=== PATIENT | male | born 1950 | race Caucasian/White ===

== ENCOUNTER → 2016-06-05 | Outpatient (CLI) | payer MEDICARE, BC ==
[2016-06-05 10:58] LABS: INR 1.8 (<1.1); Partial Thromboplastin Time 30.6 sec (22.0-30.0); Prothrombin Time 17.1 sec (9.0-12.0)
[2016-06-05 11:16] LABS: Potassium 4.5 mmol/L (3.5-5.1)
== END | disposition home or self-care (01) ==
LOC: LABWHC1 10:25
PROVIDERS: ATTEND Orthopaedic Surgery
DX: Z01.812 Encounter for preprocedural laboratory examination (principal); Z79.01 Long term (current) use of anticoagulants; Z79.899 Other long term (current) drug therapy
CPT/HCPCS: 36415; 80051; 85610; 85730

== ENCOUNTER 2016-06-07 09:54 | Day surgery (SDC) | payer MEDICARE, BC ==
[2016-06-06 09:06] VITALS: BMI 24.1
[~2016-06-07 09:54] MED LIST: Pre Op ABX Message 1 EACH MISC MISCELLANE ONE
[2016-06-07] MEDS ORDERED: LIDOCAINE 1% 20 ML VIAL (10MG/ML) FOR IV START INTRADERMA ONE (10:31)
[2016-06-07] MEDS ORDERED: LACTATED RINGERS 1,000 ML IV ONE (10:31)
[2016-06-07] MEDS ORDERED: DEXAMETHASONE SOD PHOS (MDV) 100 MG/10 ML VIAL IV ONE (10:34)
[2016-06-07] MEDS ORDERED: ONDANSETRON 4 MG/2 ML VIAL IVP ONE (10:36)
[2016-06-07 10:47] LABS: INR 1.4 (<1.1); Prothrombin Time 13.3 sec (9.0-12.0)
[2016-06-07] MEDS ORDERED: LIDOCAINE 1% INJ 10MG/ML (20 ML MDV) ONE (11:15)
[2016-06-07] MEDS ORDERED: fentaNYL (PF) 50 MCG/ML 2 ML AMP ONE (11:15)
[2016-06-07] MEDS ORDERED: MIDAZOLAM 2 MG/2 ML VIAL ONE (11:15)
[2016-06-07] MEDS ORDERED: ETOMIDATE 2 MG/ML 10 ML VIAL ONE (11:15)
[2016-06-07] MEDS ORDERED: TEMAZEPAM 15 MG CAP PO PRN (11:19)
[2016-06-07] MEDS ORDERED: hydrOXYzine PAMOATE 25 MG CAP PO PRN (11:19)
[2016-06-07] MEDS ORDERED: SENNOSIDES-DOCUSATE SODIUM 1 EACH TAB PO PRN (11:19)
[2016-06-07] MEDS ORDERED: ONDANSETRON 4 MG/2 ML VIAL IVP PRN (11:19)
[2016-06-07] MEDS ORDERED: HYDROcodone/APAP 5-325MG 1 EACH TAB PO PRN ×2 (11:19)
[2016-06-07] MEDS ORDERED: HYDROmorphone 1 MG/ML 1 ML SYRINGE IVP PRN ×3 (11:19)
[2016-06-07] MEDS ORDERED: BUPIVACAINE (PF) 0.5% 30 ML VIAL SQ ONE ×2 (11:37→12:06)
[2016-06-07] MEDS ORDERED: diphenhydrAMINE 50 MG/ML 1 ML VIAL IVP ONE (12:30)
[2016-06-07] MEDS: HYDROmorphone 1 MG/ML 1 ML SYRINGE IVP ONE ×2 (13:15→13:20)
[2016-06-07] MEDS ORDERED: KETOROLAC 30 MG/ML 1 ML VIAL IVP ONE (13:16)
[2016-06-07] MEDS ORDERED: HYDROcodone/APAP 10-325MG 1 EACH TAB ONE (13:38)
[2016-06-07] MEDS ORDERED: HYDROcodone/APAP 10-325MG 1 EACH TAB PO ONE (13:42)
[2016-06-07 15:54] VITALS: RESP 16
[2016-06-07] MEDS: LACTATED RINGERS 1,000 ML IV SCH ×2 (18:09→23:37)
[2016-06-07] MEDS: ceFAZolin 2 GM in SODIUM CHLORIDE 0.9% 100 ML IVPB SCH ×2 (18:15→23:37)
[2016-06-07] MEDS ORDERED: WARFARIN 5 MG TAB PO SCH (19:00)
[2016-06-07] MEDS: FUROSEMIDE 40 MG TAB PO SCH (20:49)
[2016-06-07] MEDS: METOPROLOL TARTRATE 25 MG TAB PO SCH (20:49)
[2016-06-08] MEDS ORDERED: LEVOTHYROXINE 25 MCG TAB PO SCH (06:30)
[2016-06-08] MEDS ORDERED: SPIRONOLACTONE 25 MG TAB PO SCH (09:00)
[2016-06-08] MEDS: FUROSEMIDE 40 MG TAB PO SCH (09:05)
[2016-06-08] MEDS: METOPROLOL TARTRATE 25 MG TAB PO SCH (09:05)
[2016-06-08 09:21] VITALS: BP 112/68; PULSE 62; TEMP 97.5
--- NOTE | 2016-06-08 10:49 | P.DS ---
Providers Expected date of discharge: 06/08/16 Attending physician: Mil Sloan Consults: 06/07/16 11:23 Consult Physician Routine Consulting Provider: Seth Zuniga Consult Reason/Comments: medical management Do you want consulting provider notified?: Yes Consult Physician Routine Consulting Provider: Franco Henriquez Consult Reason/Comments: known patient, cardiac history Do you want consulting provider notified?: Yes Primary care physician: Alexander Marrero - Discharge Diagnosis(es) (1) Status post arthroscopy of right knee Current Visit: Yes Status: Acute Hospital Course: This is a 65-year-old male with history of right knee pain with torn meniscus. It was recommended patient undergo arthroscopic debridement and partial meniscectomy. With his extensive cardiac history was recommended he be admitted postoperatively for evaluation with cardiology. Postoperative day #1, the patient is doing well. He has no new complaints or concerns today. We're waiting cardiac evaluation and clearance for discharge. I am planning discharge to home today after seen by cardiology. Plan - Discharge Summary New Discharge Prescriptions: HYDROcodone/APAP 5-325MG [[place] 5] 1 - 2 each PO Q4-6H PRN #60 tab PRN Reason: Pain Sennosides-Docusate Sodium [Senokot-S] 2 tab PO DAILY #30 tablet Discharge Medication List Levothyroxine Sodium [Synthroid] 25 mcg PO DAILY 11/10/13 [History] Metoprolol Tartrate [Lopressor] 25 mg PO BID #60 tab 07/07/15 [Rx] Furosemide [Lasix] 40 mg PO BID 06/06/16 [History] Spironolactone [Aldactone] 25 mg PO DAILY 06/06/16 [History] Warfarin [Coumadin] 2.5 mg PO SUTUTH 06/06/16 [History] Warfarin [Coumadin] 5 mg PO MOWEFRSA 06/06/16 [History] HYDROcodone/APAP 5-325MG [[place] 5] 1 - 2 each PO Q4-6H PRN #60 tab 06/07/16 [Rx] Sennosides-Docusate Sodium [Senokot-S] 2 tab PO DAILY #30 tablet 06/07/16 [Rx] Follow up Appointment(s)/Referral(s): Mil Sloan DO [Doctor of Osteopathic Medicine] - 10 Days Activity/Diet/Wound Care/Special Instructions: Change dressing daily and as needed after 48h Partial weightbearing as tolerated Follow up with Dr. Sloan in 10 days Call [facility] with any questions or concerns, . Discharge Disposition: HOME SELF-CARE
[2016-06-09] MEDS ORDERED: WARFARIN 2.5 MG TAB PO SCH (18:00)
--- NOTE | 2016-06-11 07:57 | OP ---
DATE OF SERVICE: 06/07/2016 SURGEON: NENA SMITH DO VOLTMETER OPERATOR: PREOPERATIVE DIAGNOSES: 1. Displaced Bucket Handle tear of the right medial meniscus. 2. Chronic gouty osteoarthritis. POSTOPERATIVE DIAGNOSES: 1. Displaced Bucket Handle tear of the right medial meniscus. 2. Chronic gouty osteoarthritis. 3. Proximal tearing of the Peripheral meniscus. OPERATION: Right knee arthroscopy ANESTHESIA: ESTIMATED BLOOD LOSS: SPECIMENS REMOVED: COMPLICATIONS: OPERATIVE FINDINGS: DESCRIPTION OF PROCEDURE: The patient was taken to the Operative Suite and placed in the supine position. General inhalation anesthesia was performed by the Department of Anesthesiology. Placed in leg miller. Betadine prep was carried out mid thigh to mid calf. Sterile drapes applied in the usual manner. An irrigation of superior lateral was performed. Displaced bucket handle tearing also noted. The anteromedial section of the attachment of the medial meniscus was released and held with basket forceps in position. The shaver was utilized for further debridement. Probe carried out and no evidence of displaced meniscus. The lateral compartment was inspected. Lateral meniscus was degenerative. No evidence of displacement of meniscus. Meniscus was probed and displaced. The joint was then copiously irrigated and the instrumentation then removed. The portal wounds were approximated with 3-0 Vicryl suture. Sterile dressings were applied. Patient had full extension and flexion. No evidence of locking at this time. [facility] HOSPITALAdrian
== END 2016-06-08 13:48 | disposition home or self-care (01) ==
LOC: OR 09:54 → 3SUR 12:17 → OR 06-08 13:48
PROVIDERS: ATTEND Orthopaedic Surgery
DX: S83.211A Bucket-handle tear of medial meniscus, current injury, right knee, initial encounter (principal); X58.XXXA Exposure to other specified factors, initial encounter; M10.9 Gout, unspecified; M19.90 Unspecified osteoarthritis, unspecified site; I11.0 Hypertensive heart disease with heart failure; E03.9 Hypothyroidism, unspecified; I25.10 Atherosclerotic heart disease of native coronary artery without angina pectoris; I50.9 Heart failure, unspecified; I48.0 Paroxysmal atrial fibrillation; Z79.01 Long term (current) use of anticoagulants; Z79.899 Other long term (current) drug therapy
CPT/HCPCS: 85610; 29881; J2250; J1200; J0690; J2405; J2001; J3010; J1885; J1170; J1100

== ENCOUNTER → 2016-08-08 | Outpatient (CLI) | payer MEDICARE, BC ==
[2016-08-08 10:27] LABS: Anisocytosis Slight; Aty Lym Flag Slight; CH 28.1; CHCM 31.6; HCT 30.7 % (39.0-53.0); HDW 2.29; HGB 10.1 gm/dL (13.0-17.5); MCH 29.3 pg (25.0-35.0); MCHC 32.8 g/dL (31.0-37.0); MCV 89.4 fL (80.0-100.0); Mean Platelet Volume 8.8; RBC 3.44 m/uL (4.30-5.90); RDW 18.1 % (11.5-15.5); WBC 4.6 k/uL (3.8-10.6); WBC (Perox) 4.96
[2016-08-08 10:30] LABS: Appearance,Urine Clear (Clear); Bilirubin,Urine Negative (Negative); Glucose,Urine (UA) Negative (Negative); Ketones,Urine Negative (Negative); Leukocyte Esterase,Urine Negative (Negative); Nitrite,Urine Negative (Negative); PH, Urine 5.5 (5.0-8.0); Protein,Urine Negative (Negative); Specific Gravity,Urine 1.012 (1.001-1.035); UA Billing (MACRO vs. MICRO) CHEM; Urobilinogen,Urine <2.0 mg/dL (<2.0)
[2016-08-08 11:54] LABS: Calcium 9.6 mg/dL (8.4-10.2); Magnesium 2.2 mg/dL (1.6-2.3); Phosphorous 4.2 mg/dL (2.5-4.5); Potassium 4.5 mmol/L (3.5-5.1); Uric Acid 5.2 mg/dL (3.5-8.5)
[2016-08-08 11:55] LABS: % Iron Saturation 15.2 % (20-50)
[2016-08-08 12:02] LABS: Add Differential Manual Differential
[2016-08-08 12:04] LABS: Manual Review Performed; Nucleated Red Blood Cells 0 /100 WBC (0-0); Total Cells Counted 100
== END | disposition home or self-care (01) ==
LOC: LABWHC1 09:03
PROVIDERS: ATTEND Internal Medicine Nephrology
DX: N18.4 Chronic kidney disease, stage 4 (severe) (principal); D64.9 Anemia, unspecified; E55.9 Vitamin D deficiency, unspecified; E21.3 Hyperparathyroidism, unspecified; M10.9 Gout, unspecified; N39.0 Urinary tract infection, site not specified
CPT/HCPCS: 36415; 80048; 81003; 82040; 82306; 82728; 83540; 83550; 83735; 83970; 84100; 84550; 85025

== ENCOUNTER 2017-03-17 09:49 | Inpatient (IN) | payer MEDICARE, BC ==
--- NOTE | 2017-03-17 11:29 | ED ---
General Adult HPI - General Chief complaint: Urogenital Stated complaint: MALE Time Seen by Provider: 03/17/17 10:18 Source: patient, RN notes reviewed, old records reviewed Mode of arrival: wheelchair Limitations: no limitations - History of Present Illness Initial comments: This is a 66-year-old male the ER for evaluation. Patient is unable to urinate. Patient has no medical history of inability urinate. Patient states on top of inability urinate he is significantly swollen scrotum, significantly swollen belly. Significant waking and lower extremity edema. Patient denies chest pain or shortness of breath - Related Data Home Medications Medication Instructions Recorded Confirmed Levothyroxine Sodium [Synthroid] 25 mcg PO DAILY 11/10/13 03/17/17 Furosemide [Lasix] 40 mg PO BID 06/06/16 03/17/17 Spironolactone [Aldactone] 25 mg PO DAILY 06/06/16 03/17/17 Warfarin [Coumadin] 2.5 mg PO SUTUTH 06/06/16 03/17/17 Warfarin [Coumadin] 5 mg PO MOWEFRSA 06/06/16 03/17/17 Previous Rx's Medication Instructions Recorded Metoprolol Tartrate [Lopressor] 25 mg PO BID #60 tab 07/07/15 Allergies Allergy/AdvReac Type Severity Reaction Status Date / Time No Known Allergies Allergy Verified 03/17/17 10:28 Review of Systems ROS Statement: Those systems with pertinent positive or pertinent negative responses have been documented in the HPI. ROS Other: All systems not noted in ROS Statement are negative. Past Medical History Past Medical History: Atrial Fibrillation, Deep Vein Thrombosis (DVT), Renal Disease, Thyroid Disorder Additional Past Medical History / Comment(s): kidney problem after surgery, cardiomyopathy History of Any Multi-Drug Resistant Organisms: None Reported Past Surgical History: AICD, Cardiac Ablation, Cholecystectomy, Pacemaker Additional Past Surgical History / Comment(s): pacemaker/defibrillator([employer]) Past Anesthesia/Blood Transfusion Reactions: No Reported Reaction Additional Past Anesthesia/Blood Transfusion Reaction / Comment(s): UNKNOWN FAMILY HX Type of Cardiac Device: Biventricular Pacemaker, AICD Device Placement Date:: 2013 Past Psychological History: No Psychological Hx Reported Smoking Status: Never smoker Past Alcohol Use History: Rare Past Drug Use History: None Reported - Past Family History Sister(s) Family Medical History: Cancer Additional Family Medical History / Comment(s): breast ca Father Family Medical History: Myocardial Infarction ([place]) Mother Family Medical History: Myocardial Infarction ([place]) General Exam Limitations: no limitations General appearance: alert, in no apparent distress Head exam: Present: atraumatic, normocephalic, normal inspection Eye exam: Present: normal appearance, PERRL, EOMI. Absent: scleral icterus, conjunctival injection, periorbital swelling ENT exam: Present: normal exam, mucous membranes moist Neck exam: Present: normal inspection. Absent: tenderness, meningismus, lymphadenopathy Respiratory exam: Present: normal lung sounds bilaterally. Absent: respiratory distress, wheezes, rales, rhonchi, stridor Cardiovascular Exam: Present: regular rate, normal rhythm, normal heart sounds. Absent: systolic murmur, diastolic murmur, rubs, gallop, clicks GI/Abdominal exam: Present: soft, normal bowel sounds. Absent: distended, tenderness, guarding, rebound, rigid Extremities exam: Present: normal inspection, full ROM, normal capillary refill. Absent: tenderness, pedal edema, joint swelling, calf tenderness Back exam: Present: normal inspection Neurological exam: Present: alert, oriented X3, CN II-XII intact Psychiatric exam: Present: normal affect, normal mood Skin exam: Present: warm, dry, intact, normal color. Absent: rash Course Vital Signs 03/17/17 03/17/17 03/17/17 09:53 11:00 12:21 Temperature 96.8 F L Pulse Rate 67 63 56 L Respiratory 18 18 18 Rate Blood Pressure 88/50 106/58 117/59 O2 Sat by Pulse 97 97 98 Oximetry 03/17/17 14:46 Temperature Pulse Rate 65 Respiratory 18 Rate Blood Pressure 111/58 O2 Sat by Pulse 97 Oximetry - Reevaluation(s) Reevaluation #1: Spoke with patient and family regarding exam findings, patient has no significant improvement in symptoms Medical Decision Making - Medical Decision Making 66 male the ER for evaluation. Patient was in today for evaluation regarding significant edema, scrotal edema leg edema. Patient be admitted for further evaluation and management - Lab Data Result diagrams: 03/19/17 06:25 03/19/17 06:25 Lab Results 03/17/17 03/17/17 03/17/17 Range/Units 11:07 11:07 11:07 WBC (3.8-10.6) k/uL RBC (4.30-5.90) m/uL Hgb (13.0-17.5) gm/dL Hct (39.0-53.0) % MCV (80.0-100.0) fL MCH (25.0-35.0) pg MCHC (31.0-37.0) g/dL RDW (11.5-15.5) % Plt Count (150-450) k/uL Neutrophils % (Manual) % Band Neutrophils % % Lymphocytes % (Manual) % Monocytes % (Manual) % Eosinophils % (Manual) % Neutrophils # (Manual) (1.3-7.7) k/uL Lymphocytes # (Manual) (1.0-4.8) k/uL Monocytes # (Manual) (0-1.0) k/uL Eosinophils # (Manual) (0-0.7) k/uL Nucleated RBCs (0-0) /100 WBC Hypochromasia Poikilocytosis (manual Anisocytosis Target Cells PT (9.0-12.0) sec INR (<1.2) APTT (22.0-30.0) sec Sodium 136 L (137-145) mmol/L Potassium 5.0 (3.5-5.1) mmol/L Chloride 102 (98-107) mmol/L Carbon Dioxide 23 (22-30) mmol/L Anion Gap 11 mmol/L BUN 63 H (9-20) mg/dL Creatinine 2.20 H (0.66-1.25) mg/dL Est GFR (MDRD) Af Amer 36 (>60 ml/min/1.73 sqM) Est GFR (MDRD) Non-Af 30 (>60 ml/min/1.73 sqM) Glucose 101 H (74-99) mg/dL Plasma Lactic Acid Moustapha 1.0 (0.7-2.0) mmol/L Calcium 9.7 (8.4-10.2) mg/dL Phosphorus 4.7 H (2.5-4.5) mg/dL Magnesium 2.5 H (1.6-2.3) mg/dL Iron (65-175) ug/dL TIBC (228-460) ug/dL Iron Saturation (15.00-50.00) Ferritin (22.0-322.0) ng/mL Total Bilirubin 2.0 H (0.2-1.3) mg/dL AST 29 (17-59) U/L ALT 25 (21-72) U/L Alkaline Phosphatase 181 H (38-126) U/L Ammonia 73 H (<30) umol/L Total Creatine Kinase 122 (55-170) U/L CK-MB (CK-2) 2.6 H* (0.0-2.4) ng/mL CK-MB (CK-2) Rel Index 2.1 Troponin I 0.014 (0.000-0.034) ng/mL Total Protein 6.4 (6.3-8.2) g/dL Albumin 3.6 (3.5-5.0) g/dL Lipase 213 (23-300) U/L Urine Color Urine Appearance (Clear) Urine pH (5.0-8.0) Ur Specific [place] (1.001-1.035) Urine Protein (Negative) Urine Glucose (UA) (Negative) Urine Ketones (Negative) Urine Blood (Negative) Urine Nitrite (Negative) Urine Bilirubin (Negative) Urine Urobilinogen (<2.0) mg/dL Ur Leukocyte Esterase (Negative) Serum Alcohol <10 mg/dL 03/17/17 03/17/17 03/17/17 Range/Units 11:07 11:07 11:07 WBC 4.3 (3.8-10.6) k/uL RBC 3.43 L (4.30-5.90) m/uL Hgb 9.4 L (13.0-17.5) gm/dL Hct 31.1 L (39.0-53.0) % MCV 90.7 (80.0-100.0) fL MCH 27.5 (25.0-35.0) pg MCHC 30.3 L (31.0-37.0) g/dL RDW 19.8 H (11.5-15.5) % Plt Count 120 L (150-450) k/uL Neutrophils % (Manual) 80 % Band Neutrophils % 1 % Lymphocytes % (Manual) 12 % Monocytes % (Manual) 5 % Eosinophils % (Manual) 2 % Neutrophils # (Manual) 3.40 (1.3-7.7) k/uL Lymphocytes # (Manual) 0.52 L (1.0-4.8) k/uL Monocytes # (Manual) 0.22 (0-1.0) k/uL Eosinophils # (Manual) 0.09 (0-0.7) k/uL Nucleated RBCs 0 (0-0) /100 WBC Hypochromasia Slight Poikilocytosis (manual Present Anisocytosis Slight Target Cells Present PT 41.0 H (9.0-12.0) sec INR 4.6 H (<1.2) APTT 35.4 H (22.0-30.0) sec Sodium (137-145) mmol/L Potassium (3.5-5.1) mmol/L Chloride (98-107) mmol/L Carbon Dioxide (22-30) mmol/L Anion Gap mmol/L BUN (9-20) mg/dL Creatinine (0.66-1.25) mg/dL Est GFR (MDRD) Af Amer (>60 ml/min/1.73 sqM) Est GFR (MDRD) Non-Af (>60 ml/min/1.73 sqM) Glucose (74-99) mg/dL Plasma Lactic Acid Moustapha (0.7-2.0) mmol/L Calcium (8.4-10.2) mg/dL Phosphorus (2.5-4.5) mg/dL Magnesium (1.6-2.3) mg/dL Iron (65-175) ug/dL TIBC (228-460) ug/dL Iron Saturation (15.00-50.00) Ferritin (22.0-322.0) ng/mL Total Bilirubin (0.2-1.3) mg/dL AST (17-59) U/L ALT (21-72) U/L Alkaline Phosphatase (38-126) U/L Ammonia (<30) umol/L Total Creatine Kinase (55-170) U/L CK-MB (CK-2) (0.0-2.4) ng/mL CK-MB (CK-2) Rel Index Troponin I (0.000-0.034) ng/mL Total Protein (6.3-8.2) g/dL Albumin (3.5-5.0) g/dL Lipase (23-300) U/L Urine Color Yellow Urine Appearance Clear (Clear) Urine pH 5.5 (5.0-8.0) Ur Specific [place] 1.009 (1.001-1.035) Urine Protein Negative (Negative) Urine Glucose (UA) Negative (Negative) Urine Ketones Negative (Negative) Urine Blood Negative (Negative) Urine Nitrite Negative (Negative) Urine Bilirubin Negative (Negative) Urine Urobilinogen <2.0 (<2.0) mg/dL Ur Leukocyte Esterase Negative (Negative) Serum Alcohol mg/dL 03/17/17 Range/Units 11:07 WBC (3.8-10.6) k/uL RBC (4.30-5.90) m/uL Hgb (13.0-17.5) gm/dL Hct (39.0-53.0) % MCV (80.0-100.0) fL MCH (25.0-35.0) pg MCHC (31.0-37.0) g/dL RDW (11.5-15.5) % Plt Count (150-450) k/uL Neutrophils % (Manual) % Band Neutrophils % % Lymphocytes % (Manual) % Monocytes % (Manual) % Eosinophils % (Manual) % Neutrophils # (Manual) (1.3-7.7) k/uL Lymphocytes # (Manual) (1.0-4.8) k/uL Monocytes # (Manual) (0-1.0) k/uL Eosinophils # (Manual) (0-0.7) k/uL Nucleated RBCs (0-0) /100 WBC Hypochromasia Poikilocytosis (manual Anisocytosis Target Cells PT (9.0-12.0) sec INR (<1.2) APTT (22.0-30.0) sec Sodium (137-145) mmol/L Potassium (3.5-5.1) mmol/L Chloride (98-107) mmol/L Carbon Dioxide (22-30) mmol/L Anion Gap mmol/L BUN (9-20) mg/dL Creatinine (0.66-1.25) mg/dL Est GFR (MDRD) Af Amer (>60 ml/min/1.73 sqM) Est GFR (MDRD) Non-Af (>60 ml/min/1.73 sqM) Glucose (74-99) mg/dL Plasma Lactic Acid Moustapha (0.7-2.0) mmol/L Calcium (8.4-10.2) mg/dL Phosphorus (2.5-4.5) mg/dL Magnesium (1.6-2.3) mg/dL Iron 39 L (65-175) ug/dL TIBC 354 (228-460) ug/dL Iron Saturation 11.02 L (15.00-50.00) Ferritin 54.1 (22.0-322.0) ng/mL Total Bilirubin (0.2-1.3) mg/dL AST (17-59) U/L ALT (21-72) U/L Alkaline Phosphatase (38-126) U/L Ammonia (<30) umol/L Total Creatine Kinase (55-170) U/L CK-MB (CK-2) (0.0-2.4) ng/mL CK-MB (CK-2) Rel Index Troponin I (0.000-0.034) ng/mL Total Protein (6.3-8.2) g/dL Albumin (3.5-5.0) g/dL Lipase (23-300) U/L Urine Color Urine Appearance (Clear) Urine pH (5.0-8.0) Ur Specific [place] (1.001-1.035) Urine Protein (Negative) Urine Glucose (UA) (Negative) Urine Ketones (Negative) Urine Blood (Negative) Urine Nitrite (Negative) Urine Bilirubin (Negative) Urine Urobilinogen (<2.0) mg/dL Ur Leukocyte Esterase (Negative) Serum Alcohol mg/dL - Radiology Data Radiology results: report reviewed (Chest x-ray and ultrasound abdomen including gallbladder bilateral renals and plantar is negative for acute disease ), image reviewed Disposition Clinical Impression: Renal failure, CHF (congestive heart failure), Anasarca, Bilateral leg edema, Ascites Disposition: ADMITTED IP TO THIS [facility] Condition: Good
[2017-03-17 11:37] LABS: Appearance,Urine Clear (Clear); Bilirubin,Urine Negative (Negative); Blood,Urine Negative (Negative); Color,Urine Yellow; Glucose,Urine (UA) Negative (Negative); Ketones,Urine Negative (Negative); Leukocyte Esterase,Urine Negative (Negative); Nitrite,Urine Negative (Negative); PH, Urine 5.5 (5.0-8.0); Protein,Urine Negative (Negative); Specific Gravity,Urine 1.009 (1.001-1.035); Urobilinogen,Urine <2.0 mg/dL (<2.0)
[2017-03-17 11:44] LABS: INR 4.6 (<1.2); Partial Thromboplastin Time 35.4 sec (22.0-30.0)
[2017-03-17 11:47] LABS: ALT 25 U/L (21-72); AST 29 U/L (17-59); Albumin 3.6 g/dL (3.5-5.0); Alcohol <10 mg/dL; Alkaline Phosphatase 181 U/L (38-126); Anion Gap 11 mmol/L; Blood Urea Nitrogen 63 mg/dL (9-20); Calcium 9.7 mg/dL (8.4-10.2); Carbon Dioxide 23 mmol/L (22-30); Chloride 102 mmol/L (98-107); Glucose 101 mg/dL (74-99); Lipase 213 U/L (23-300); Magnesium 2.5 mg/dL (1.6-2.3); Phosphorus 4.7 mg/dL (2.5-4.5); Sodium 136 mmol/L (137-145); Total Protein 6.4 g/dL (6.3-8.2)
[2017-03-17 12:08] LABS: Anisocytosis Slight; HCT 31.1 % (39.0-53.0); HGB 9.4 gm/dL (13.0-17.5); Hypochromasia Slight; MCH 27.5 pg (25.0-35.0); MCHC 30.3 g/dL (31.0-37.0); MCV 90.7 fL (80.0-100.0); Mean Platelet Volume 11.1; Platelet Count 120 k/uL (150-450); RBC 3.43 m/uL (4.30-5.90); RDW 19.8 % (11.5-15.5); WBC 4.3 k/uL (3.8-10.6)
[2017-03-17 12:10] LABS: Troponin I 0.014 ng/mL (0.000-0.034)
[2017-03-17 12:19] LABS: Creatine Kinase MB 2.6 ng/mL (0.0-2.4)
[2017-03-17 12:30] LABS: Band Neutrophils % 1 %; Eosinophils # (M) 0.09 k/uL (0-0.7); Lymphocytes # (M) 0.52 k/uL (1.0-4.8); Monocytes # (M) 0.22 k/uL (0-1.0); Neutrophils % (M) 80 %; Nucleated Red Blood Cells 0 /100 WBC (0-0); Target Cells Present; Total Cells Counted 100
[2017-03-17 12:31] LABS: Poikilocytosis (M) Present
--- NOTE | 2017-03-17 14:06 | US ---
EXAMINATION TYPE: US abd limited kidneys/bladder DATE OF EXAM: 03/17/2017 COMPARISON: US 06/24/2015 CLINICAL HISTORY: Pain. abdominal distention EXAM MEASUREMENTS: Liver Length: 15.8 cm Gallbladder Wall: Surgically absent cm CBD: 0.7 cm Right Kidney: 9.6 x 4.1 x 5.0 cm Left Kidney: 10.1 x 4.1 x 4.9 cm Pancreas: visualized portions wnl Liver: limited vis to intercostal window some mild fatty infiltration also appears to be present. Gallbladder: Surgically absent CBD: measures 0.7 cm Right Kidney: No hydronephrosis or masses seen Left Kidney: No hydronephrosis or masses seen Bladder: wnl Bilateral Jets Seen No patient has pitted edema in abdominal wall limiting visualization. IMPRESSION: 1. Mild fatty infiltration liver. 2. Note is made of some subcutaneous edema present during this exam.
[2017-03-17] MEDS ORDERED: LACTULOSE 20 GM/30 ML CUP PO ONE (14:23)
[2017-03-17] MEDS ORDERED: FUROSEMIDE 10 MG/ML 10 ML VIAL IV STA (14:24)
[2017-03-17] MEDS ORDERED: PNEUMOCOCCAL VACC-PNEUMOVAX 23 25 MCG/0.5 ML VIAL IM ONE (16:43)
[2017-03-17] MEDS ORDERED: PSEUDOEPHEDRINE 30 MG TAB PO PRN (17:04)
[2017-03-17] MEDS: IOHEXOL 350 MG/ML 25 ML BOTTLE (ORAL USE) PO PRN ×2 (17:28→18:31)
[2017-03-17] MEDS: SODIUM CHLORIDE 0.65% NASAL SPRAY 44 ML BTL NASAL PRN (18:31)
--- NOTE | 2017-03-17 19:20 | XR ---
EXAMINATION TYPE: XR chest 2V DATE OF EXAM: 03/17/2017 COMPARISON: 06/29/2015 HISTORY: Chest pain TECHNIQUE: Frontal and lateral views of the chest are obtained. FINDINGS: Heart is enlarged. There is mild pulmonary vascular congestion. There is a left axillary p acemaker with the lead tip in the right ventricle. There are chest leads. I see no definite pleural e ffusion. IMPRESSION: Cardiomegaly with mild congestion that is increased slightly compared to last exam.
--- NOTE | 2017-03-17 19:27 | CT ---
EXAMINATION TYPE: CT abdomen pelvis wo con DATE OF EXAM: 03/17/2017 COMPARISON: NONE HISTORY: Patient complains of scrotal swelling CT DLP: 1299.5 mGycm Automated exposure control for dose reduction was used. TECHNIQUE: Helical acquisition of images was performed from the lung bases through the pelvis. FINDINGS: There is a small right pleural effusion. Heart is enlarged. There is a 1 cm cyst in the anterior live r. Bile ducts are not dilated. There are clips from cholecystectomy. Spleen appears normal. There is no pancreatic mass. There is mild ascites. There is extensive subcutaneous edema around the abdomen. Bladder distends smoothly. There are bilateral scrotal hydroceles noted. I see no intestinal wall thickening. There is no evidence of bowel obstruction. There is no hydronephrosis. Kidneys have normal contour. There is no evidence of a renal mass. There is no retroperitoneal adenopathy. There is no sign of appendicitis. IMPRESSION: CARDIOMEGALY WITH SMALL RIGHT PLEURAL EFFUSION. THIS COULD RELATE TO CONGESTIVE HEART FAILURE. MILD ASCITES. SCROTAL HYDROCELES. SUBCUTANEOUS EDEMA. NO FREE AIR. THERE IS 20% COMPRESSION DEFORMITY OF T12 VERTEBRA THAT IS PROBABLY OLD.
[2017-03-17] MEDS: METOPROLOL TARTRATE 25 MG TAB PO SCH (20:29)
[2017-03-17] MEDS: FUROSEMIDE 10 MG/ML 10 ML VIAL IV SCH (20:29)
[2017-03-18 01:03] LABS: Iron Saturation 11.02 (15.00-50.00)
[2017-03-18] MEDS: SODIUM CHLORIDE 0.65% NASAL SPRAY 44 ML BTL NASAL PRN (03:28)
[2017-03-18] MEDS: LEVOTHYROXINE 25 MCG TAB PO SCH (06:12)
[2017-03-18 06:58] LABS: Calcium 10.1 mg/dL (8.4-10.2)
[2017-03-18 07:15] LABS: Anisocytosis Slight; HGB 9.3 gm/dL (13.0-17.5); Hypochromasia Moderate; MCH 28.5 pg (25.0-35.0); MCHC 30.1 g/dL (31.0-37.0); MCV 94.6 fL (80.0-100.0); Macrocytosis Slight; Mean Platelet Volume 9.2; Platelet Count 126 k/uL (150-450); RBC 3.28 m/uL (4.30-5.90); RDW 18.2 % (11.5-15.5); WBC 4.2 k/uL (3.8-10.6)
[2017-03-18 07:40] LABS: INR 4.7 (<1.2); Prothrombin Time 42.8 sec (9.0-12.0)
[2017-03-18] MEDS: METOPROLOL TARTRATE 25 MG TAB PO SCH ×2 (08:51→21:27)
[2017-03-18] MEDS: SPIRONOLACTONE 25 MG TAB PO SCH (08:51)
[2017-03-18] MEDS: ENOXAPARIN 40 MG/0.4 ML SYRINGE SQ SCH (08:51)
[2017-03-18 09:11] LABS: Band Neutrophils % 1 %; Eosinophils # (M) 0.21 k/uL (0-0.7); Lymphocytes # (M) 0.38 k/uL (1.0-4.8); Monocytes # (M) 0.21 k/uL (0-1.0); Neutrophils % (M) 80 %; Nucleated Red Blood Cells 0 /100 WBC (0-0); Polychromasia Present; Total Cells Counted 100
[2017-03-18 09:12] LABS: Poikilocytosis (M) Present; Target Cells Present
--- NOTE | 2017-03-18 09:38 | P.NPCON ---
History of Present Illness - Reason for Consult chronic renal failure - History of Present Illness Reason for consultation: Chronic kidney disease History of present illness: Patient is a 66-year-old male seen in renal consultation for chronic kidney disease. 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 His baseline creatinine has been in the range of 1.6- 2.5. Patient presented to hospital with generalized edema as well as some scrotal swelling. Patient states he was taking Lasix 40 mg twice daily but his urine output had been decreasing gradually. He was also started on Flomax and that did not help either he does have history of systolic CHF with ejection fraction of 20-25%. He is currently maintained on Lasix 60 mg IV twice daily and has been urinating quite a bit. No hematuria or dysuria. Denies chest pain or shortness of breath. He states he did gain about 35 pounds in the last 2 months or so. He also states that he was told that he was dehydrated and to drink more water and therefore has been drinking quite a bit of water which she states has contributed to his weight gain. Denies use of NSAIDs. No vomiting or diarrhea. No fever or chills. Vital signs are stable. General: The patient appeared well nourished and normally developed. HEENT: Head exam is unremarkable. Neck is without jugular venous distension. LUNGS: Lungs are clear to auscultation and percussion. Breath sounds decreased. HEART: Rate and Rhythm are regular. First and second heart sounds normal. No murmurs, rubs or gallops. ABDOMEN: Abdominal exam reveals normal bowel sounds. Distention noted. EXTREMITITES: 2+ edema. Erythema noted. Past Medical History Past Medical History: Atrial Fibrillation, Deep Vein Thrombosis (DVT), Renal Disease, Thyroid Disorder Additional Past Medical History / Comment(s): kidney problem after surgery, cardiomyopathy, occ constipation History of Any Multi-Drug Resistant Organisms: None Reported Past Surgical History: AICD, Cardiac Ablation, Cholecystectomy, Pacemaker Additional Past Surgical History / Comment(s): pacemaker/defibrillator([employer]) , rt kne arthroscopic debridment/partial meniscectomy Past Anesthesia/Blood Transfusion Reactions: No Reported Reaction Additional Past Anesthesia/Blood Transfusion Reaction / Comment(s): UNKNOWN FAMILY HX Type of Cardiac Device: Biventricular Pacemaker, AICD Device Placement Date:: 2013 Smoking Status: Never smoker - Past Family History Sister(s) Family Medical History: Cancer Additional Family Medical History / Comment(s): breast ca Father Family Medical History: Myocardial Infarction ([place]) Mother Family Medical History: Myocardial Infarction ([place]) Medications and Allergies Home Medications Medication Instructions Recorded Confirmed Type Levothyroxine Sodium [Synthroid] 25 mcg PO DAILY 11/10/13 03/17/17 History Metoprolol Tartrate [Lopressor] 25 mg PO BID #60 tab 07/07/15 03/17/17 Rx Furosemide [Lasix] 40 mg PO BID 06/06/16 03/17/17 History Spironolactone [Aldactone] 25 mg PO DAILY 06/06/16 03/17/17 History Warfarin [Coumadin] 2.5 mg PO SUTUTH 06/06/16 03/17/17 History Warfarin [Coumadin] 5 mg PO MOWEFRSA 06/06/16 03/17/17 History Allergies Allergy/AdvReac Type Severity Reaction Status Date / Time No Known Allergies Allergy Verified 03/17/17 10:28 Physical Exam Vitals: Vital Signs Temp Pulse Pulse Resp BP BP Pulse Ox 03/18/17 08:52 97.6 F 57 L 16 108/59 99 03/18/17 04:00 96.8 F L 75 17 111/54 97 03/18/17 00:00 96.9 F L 65 18 115/77 95 03/17/17 20:00 97 F L 68 17 106/53 97 03/17/17 16:52 97.3 F L 62 18 108/58 99 03/17/17 14:46 65 18 111/58 97 03/17/17 12:21 56 L 18 117/59 98 03/17/17 11:00 63 18 106/58 97 03/17/17 09:53 96.8 F L 67 18 88/50 97 Intake and Output 03/17/17 03/18/17 03/18/17 22:59 06:59 14:59 Intake Total 200 118 Output Total 350 475 Balance -350 -275 118 Intake: Oral 200 118 Output: Urine 350 475 Other: Voiding Method Toilet Toilet Toilet Urinal Urinal # Voids 200 Weight 108.9 kg Results - Lab Results Most recent lab results Calcium 10.1 mg/dL (8.4-10.2) 01/30/18 06:08 Phosphorus 4.7 mg/dL (2.5-4.5) H 03/17/17 11:07 Magnesium 2.5 mg/dL (1.6-2.3) H 03/17/17 11:07 03/18/17 06:08 03/18/17 06:08 Assessment and Plan Plan: assessment: #1. Chronic kidney disease stage IIIB/4 secondary to nephrosclerosis and cardiorenal syndrome with baseline creatinine in the range of 1.6-2.5. Urinalysis is quite benign. No evidence of hydronephrosis noted. GFR is at baseline. #2. Volume overload. #3. Systolic CHF with ejection fraction of 20-25%. #4. Anemia of chronic kidney disease. Rule out iron deficiency. #5. Metabolic acidosis secondary to chronic kidney disease. Plan: I will increase Lasix to 80 mg IV twice daily. Check iron studies. Avoid nephrotoxic agents and hypotensive episodes. Maintain low salt diet and 1500 mL fluid restriction. Add oral sodium bicarbonate. Repeat electrolytes in the morning. Daily weights. Thank you for the consultation. I will continue to follow the patient with you during his hospital stay.
[2017-03-18] MEDS: FUROSEMIDE 10 MG/ML 10 ML VIAL IV SCH ×3 (11:48→20:39)
[2017-03-18] MEDS: SODIUM BICARBONATE TAB 650 MG TAB PO SCH ×2 (11:51→20:39)
--- NOTE | 2017-03-18 12:58 | P.CONS ---
History of Present Illness - Reason for Consult Consult date: 03/18/17 elevated ammonia Requesting physician: Lisbet Landers - History of Present Illness 66-year-old gentleman with a past medical history of chronic kidney disease stage III be secondary to cardiorenal syndrome, nonischemic cardiomyopathy/AICD , cholecystectomy, TIA, paroxysmal atrial fibrillation maintained on warfarin admitted with generalized edema scrotal swelling and increased weight gain 2 months. Admission ammonia level elevated at 73 without mental status changes. Repeat ammonia level today increased to 102. Patient reports intermittent muscle aches cramps over the last few weeks. Consult requested for elevated ammonia level. Patient states he has no known history of liver disease or hepatitis. No history of EtOH abuse. Denies hematemesis hematochezia melena. White count 4.2-4.3. Hemoglobin 9.3-9.4. MCV 94. Platelet 120-126. INR 4.7. Total bilirubin 2.0. AST 29. ALT 25. Alkaline phosphatase 181. Ferritin 54. Iron saturation 11%. Iron 39. TIBC 354. Total protein 6.4. Albumin 3.6. CT abdomen and pelvis reported cardiomegaly with small right pleural effusion. Mild ascites. Scrotal hydroceles. Subcutaneous edema. Mild ascites. No pancreatic mass. Spleen appears normal. Bile duct is not dilated. 1 cm cyst anterior liver. Heart enlarged. Review of Systems Constitutional: Denies fever, chills, sweats, weight gain, or loss. HEENT: Negative for migraines, blurred vision or loss, earaches, drainage, tinnitus, oral mucosal lesions, dysphagia, or odynophagia. Cardiac: Cardiorenal syndrome. Cardiomyopathy. AICD pacemaker. Atrial fibrillation. DVT. Negative for chest pain, arrhythmias, or palpitation. Respiratory: Negative for shortness of breath, hemoptysis, cough, or sputum production. Gastrointestinal: See HPI for pertinent findings. Genitourinary: Negative for hematuria, urgency, frequency, polyuria, dysuria, or penile discharge. Musculoskeletal: Negative for muscle aches, swelling, arthritis, and arthralgias. Neurologic: Negative for stroke or TIA. Endocrine: History of hypothyroidism.. Nephrology: Chronic kidney disease stage III B. Skin: Negative for rash or itching. Psychiatric: Negative history for depression and anxiety Past Medical History Past Medical History: Atrial Fibrillation, Deep Vein Thrombosis (DVT), Renal Disease, Thyroid Disorder Additional Past Medical History / Comment(s): kidney problem after surgery, cardiomyopathy, occ constipation History of Any Multi-Drug Resistant Organisms: None Reported Past Surgical History: AICD, Cardiac Ablation, Cholecystectomy, Pacemaker Additional Past Surgical History / Comment(s): pacemaker/defibrillator([employer]) , rt kne arthroscopic debridment/partial meniscectomy Past Anesthesia/Blood Transfusion Reactions: No Reported Reaction Additional Past Anesthesia/Blood Transfusion Reaction / Comm: UNKNOWN FAMILY HX Type of Cardiac Device: Biventricular Pacemaker, AICD Device Placement Date:: 2013 Smoking Status: Never smoker - Past Family History Sister(s) Family Medical History: Cancer Additional Family Medical History / Comment(s): breast ca Father Family Medical History: Myocardial Infarction ([place]) Mother Family Medical History: Myocardial Infarction ([place]) Medications and Allergies Home Medications Medication Instructions Recorded Confirmed Type Levothyroxine Sodium [Synthroid] 25 mcg PO DAILY 11/10/13 03/17/17 History Metoprolol Tartrate [Lopressor] 25 mg PO BID #60 tab 07/07/15 03/17/17 Rx Furosemide [Lasix] 40 mg PO BID 06/06/16 03/17/17 History Spironolactone [Aldactone] 25 mg PO DAILY 06/06/16 03/17/17 History Warfarin [Coumadin] 2.5 mg PO SUTUTH 06/06/16 03/17/17 History Warfarin [Coumadin] 5 mg PO MOWEFRSA 06/06/16 03/17/17 History Allergies Allergy/AdvReac Type Severity Reaction Status Date / Time No Known Allergies Allergy Verified 03/17/17 10:28 Physical Exam Vitals: Vital Signs Temp Pulse Pulse Resp BP BP Pulse Ox 03/18/17 12:06 97.6 F 59 L 16 106/63 98 03/18/17 08:52 97.6 F 57 L 16 108/59 99 03/18/17 04:00 96.8 F L 75 17 111/54 97 03/18/17 00:00 96.9 F L 65 18 115/77 95 03/17/17 20:00 97 F L 68 17 106/53 97 03/17/17 16:52 97.3 F L 62 18 108/58 99 03/17/17 14:46 65 18 111/58 97 Intake and Output 03/17/17 03/18/17 03/18/17 22:59 06:59 14:59 Intake Total 200 118 Output Total 350 475 Balance -350 -275 118 Intake: Oral 200 118 Output: Urine 350 475 Other: Voiding Method Toilet Toilet Toilet Urinal Urinal # Voids 200 Weight 108.9 kg General appearance: The patient is alert, oriented, in no acute distress. HET: Head is normocephalic and atraumatic. Pupils are equal and reactive. Oropharynx is clear without lesions. Neck: Supple without lymphadenopathy. Trachea midline. Heart: S1 S2. Regular rate and rhythm. Lungs: No crackles or wheezes are heard. Abdomen: Soft, distended with bowel sounds. No peritoneal signs. No palpable organomegaly or masses. Scrotal edema. Extremities: +2/3 bilateral lower extremity edema.. Neurological: No focal deficits. Strength and sensation are grossly intact. Results CBC & Chem 7: 03/19/17 06:25 03/19/17 06:25 Labs: Abnormal Lab Results - Last 24 Hours (Table) 03/17/17 03/18/17 03/18/17 Range/Units 11:07 06:08 06:08 RBC 3.28 L (4.30-5.90) m/uL Hgb 9.3 L (13.0-17.5) gm/dL Hct 31.0 L (39.0-53.0) % MCHC 30.1 L (31.0-37.0) g/dL RDW 18.2 H (11.5-15.5) % Plt Count 126 L (150-450) k/uL Lymphocytes # (Manual) 0.38 L (1.0-4.8) k/uL PT (9.0-12.0) sec INR (<1.2) Sodium 134 L (137-145) mmol/L Carbon Dioxide 20 L (22-30) mmol/L BUN 67 H (9-20) mg/dL Creatinine 2.30 H (0.66-1.25) mg/dL Iron 39 L (65-175) ug/dL Iron Saturation 11.02 L (15.00-50.00) Ammonia (<30) umol/L 03/18/17 03/18/17 Range/Units 06:08 11:17 RBC (4.30-5.90) m/uL Hgb (13.0-17.5) gm/dL Hct (39.0-53.0) % MCHC (31.0-37.0) g/dL RDW (11.5-15.5) % Plt Count (150-450) k/uL Lymphocytes # (Manual) (1.0-4.8) k/uL PT 42.8 H (9.0-12.0) sec INR 4.7 H (<1.2) Sodium (137-145) mmol/L Carbon Dioxide (22-30) mmol/L BUN (9-20) mg/dL Creatinine (0.66-1.25) mg/dL Iron (65-175) ug/dL Iron Saturation (15.00-50.00) Ammonia 102 H (<30) umol/L Microbiology - Last 24 Hours (Table) 03/17/17 11:07 Urine Culture - Final Urine,Voided CT scan - abdomen: report reviewed (Dr. Luna) Assessment and Plan (1) Hyperammonemia Narrative/Plan: Asymptomatic hyperammonemia. The etiology is unclear. Underlying chronic liver disease possible metabolic acidemia type deficiency cannot be excluded. Current Visit: Yes Status: Acute Code(s): E72.20 - DISORDER OF UREA CYCLE METABOLISM, UNSPECIFIED SNOMED Code(s): 6878921 (2) Cardiorenal syndrome with renal failure Narrative/Plan: Chronic kidney disease stage IIIB Current Visit: Yes Status: Acute Code(s): I13.10 - HYP HRT & CHR KDNY DIS W/ O HRT FAIL, W STG 1-4/UNSP CHR KDNY; N19 - UNSPECIFIED KIDNEY FAILURE SNOMED Code(s): 106276269 (3) Hyperbilirubinemia Narrative/Plan: Suspect passive venous congestion related Current Visit: Yes Status: Acute Code(s): E80.6 - OTHER DISORDERS OF BILIRUBIN METABOLISM SNOMED Code(s): 57967861 Plan: 1. Full serologic workup for chronic liver disease. Hepatitis serology. AFP. Total and free serum measurement of l-carnitine. 2. Lactulose 20 g 3 times daily. Repeat ammonia level in a.m. Will follow closely with you. Further recommendations forthcoming. Thank you for this kind referral and the opportunity to participate in the care of your patient. This consultation was discussed with Dr. Luna. The impression and plan of care have been directed as dictated.
--- NOTE | 2017-03-18 15:13 | P.HPIM ---
History of Present Illness Chief Complaint: alek, common bile duct 0.7 cm, gallbladder This is a 66 year old pleasant gentleman aptient of Dr Antonio Bardales. he has underlying history of aftrial fibrillation, hypertension and ventricular arrythmia for which and cardiac ablation on 10/[address] Henriquez, CVA, diabetes mellitus type 2 atrial fibrillation, DVT,. Presenting to the emergency room secondary to difficulty of urinating, acute onset, he also has swelling scrotum, swelling lower extremity and some swelling in the abdomen. Patient denies any chest pain or shortness of breath, patient's on Lasix 40 mg twice a day, as well as Coumadin for anticoagulation Weight gain started approximately since , when patient was noted to have some leg cramps, a friend advised him to drink more fluids, thereafter patient started drinking more of fluids 64 ounces minimum per day, patient started gaining the weight and had 35 pound weight gain since January. Patient denies any PND or shortness of breath he does have worsening leg swelling and abdominal ascites no chest pain patient denies jaundice He was subsequently seen in the emergency room, urinalysis was negative for pyuria or hematuria, specific gravity was 1.009, creatinine of 2.2, BUN of 63, alkaline phosphatase elevated at 181, ammonia elevated at 73, bilirubin elevated at 2.0 however AST ALT normal, alkaline phosphase elevated abdominal ultrasound shows gallbladder surgically absent, patient has fatty liver, and bile duct 0.7 cm, no hydronephrosis, bladder within normal limits, no bladder jets noted, as patient has pitting edema and abdomen with the examination the patient complains of epistaxis leg cramps and abdominal distention with ascites and difficulties urinating, post void residual was requested, bladder scan noted as above negative for any bladder distention or hydronephrosis. Consult was made Dr. Castro and Dr. Luna gastroenterology Previous workup in 2016 echocardiogram was reviewed, EF at that time was 20-25% , right ventricle enlargement, mild aortic valve sclerosis without stenosis, left ventricle wall thickness is normal, mild MR and mild TR and mild TR Review of Systems Constitutional: Reports as per HPI, Denies anorexia, Denies chills, Denies chronic headaches, Denies chronic pain, Denies daytime sleepiness, Denies fatigue, Denies fever, Denies lethargy, Denies malaise, Denies night sweats, Denies poor appetite, Denies sweats, Denies weakness, Denies weight gain, Denies weight loss Ears, nose, mouth and throat: Reports as per HPI, Denies ant. neck pain, Denies bleeding gums, Denies dental pain, Denies dysphagia, Denies epistaxis, Denies headache, Denies hoarseness, Denies mouth pain, Denies nasal congestion, Denies nasal discharge, Denies neck fullness/pressure, Denies neck lump, Denies nose pain, Denies odynophagia, Denies post-nasal drip, Denies sinus pain, Denies sinus pressure, Denies swelling in mouth, Denies swelling in throat, Denies sore throat, Denies vertigo, Denies voice changes Cardiovascular: Reports as per HPI Respiratory: Reports as per HPI, Denies congestion, Denies cough, Denies cough with sputum, Denies dyspnea, Denies excessive sputum, Denies hemoptysis, Denies home oxygen, Denies pain, Denies pain on inspiration, Denies pleurisy, Denies respiratory infections, Denies sleep apnea, Denies snoring, Denies wheezing Gastrointestinal: Reports as per HPI, Denies abdominal pain, Denies belching, Denies bloating, Denies BRBPR, Denies change in bowel habits, Denies coffee ground emesis, Denies constipation, Denies diarrhea, Denies dyspepsia, Denies early satiety, Denies excessive gas, Denies heartburn, Denies hematemesis, Denies hematochezia, Denies indigestion, Denies jaundice, Denies lactose intolerance, Denies loss of appetite, Denies melena, Denies nausea, Denies vomiting Genitourinary: Reports as per HPI, Reports urinary hesitancy Musculoskeletal: Reports as per HPI, Denies arm numbness/tingling, Denies atrophy, Denies fractures, Denies frequent falls, Denies gait dysfunction, Denies hot joints, Denies leg numbness/tingling, Denies limitation of motion, Denies loss of height, Denies low back pain, Denies morning stiffness, Denies muscle cramps, Denies muscle weakness, Denies myalgias, Denies neck pain, Denies neck stiffness, Denies prior amputations, Denies redness of joints, Denies shooting arm pain, Denies shooting leg pain Musculoskeletal: left: ankle swelling, knee swelling Integumentary: Reports as per HPI, Reports striae Neurological: Reports as per HPI Psychiatric: Reports as per HPI Endocrine: Reports as per HPI, Denies cold intolerance, Denies deepening of the voice, Denies excessive sweating, Denies excessive thirst, Denies fatigue, Denies flushing, Denies heat intolerance, Denies high blood sugars, Denies increase in ring/shoe/hat size, Denies low blood sugars, Denies nocturia, Denies palpitations, Denies polydipsia, Denies polyphagia, Denies polyuria, Denies proptosis, Denies recent glucocorticoid use, Denies thyroid mass, Denies weight change Hematologic/Lymphatic: Reports as per HPI Allergic/Immunologic: Reports as per HPI, Denies allergic rhinitis, Denies anaphylaxis, Denies angioedema, Denies gluten intolerance, Denies persistent infections, Denies seasonal allergies, Denies urticaria, Denies wheezing Past Medical History Past Medical History: Atrial Fibrillation, Deep Vein Thrombosis (DVT), Renal Disease, Thyroid Disorder Additional Past Medical History / Comment(s): kidney problem after surgery, cardiomyopathy History of Any Multi-Drug Resistant Organisms: None Reported Past Surgical History: AICD, Cardiac Ablation, Cholecystectomy, Pacemaker Additional Past Surgical History / Comment(s): pacemaker/defibrillator([employer]) Past Anesthesia/Blood Transfusion Reactions: No Reported Reaction Additional Past Anesthesia/Blood Transfusion Reaction / Comment(s): UNKNOWN FAMILY HX Type of Cardiac Device: Biventricular Pacemaker, AICD Device Placement Date:: 2013 Past Psychological History: No Psychological Hx Reported Smoking Status: Never smoker Past Alcohol Use History: Rare Past Drug Use History: None Reported - Past Family History Sister(s) Family Medical History: Cancer Additional Family Medical History / Comment(s): breast ca Father Family Medical History: Myocardial Infarction ([place]) Mother Family Medical History: Myocardial Infarction ([place]) Medications and Allergies Home Medications Medication Instructions Recorded Confirmed Type Levothyroxine Sodium [Synthroid] 25 mcg PO DAILY 11/10/13 03/17/17 History Metoprolol Tartrate [Lopressor] 25 mg PO BID #60 tab 07/07/15 03/17/17 Rx Furosemide [Lasix] 40 mg PO BID 06/06/16 03/17/17 History Spironolactone [Aldactone] 25 mg PO DAILY 06/06/16 03/17/17 History Warfarin [Coumadin] 2.5 mg PO SUTUTH 06/06/16 03/17/17 History Warfarin [Coumadin] 5 mg PO MOWEFRSA 06/06/16 03/17/17 History Allergies Allergy/AdvReac Type Severity Reaction Status Date / Time No Known Allergies Allergy Verified 03/17/17 10:28 Physical Exam Vitals: Vital Signs Temp Pulse Resp BP Pulse Ox 03/17/17 14:46 65 18 111/58 97 03/17/17 12:21 56 L 18 117/59 98 03/17/17 11:00 63 18 106/58 97 03/17/17 09:53 96.8 F L 67 18 88/50 97 Intake and Output 03/17/17 03/17/17 03/17/17 06:59 14:59 22:59 Other: Voiding Method Toilet Weight 109.316 kg Patient Weight 03/18/17 06:59 Weight 109.316 kg - Constitutional General appearance: cooperative, no acute distress, obese - EENT Eyes: anicteric sclerae, EOMI, PERRLA, dentition normal, normal appearance ENT: hearing grossly normal, normal oropharynx - Neck Neck: normal ROM - Respiratory Respiratory: bilateral: CTA, negative: diminished, dullness, rales, rhonchi - Cardiovascular Rhythm: regular Heart sounds: normal: S1, S2 Abnormal Heart Sounds: no systolic murmur, no diastolic murmur, no rub, no S3 Gallop, no S4 Gallop, no click, no other leg Peripheral Edema: bilateral: 4+ - Gastrointestinal General gastrointestinal: organomegaly, soft - Genitourinary Male genitourinary: scrotal edema - Integumentary Integumentary: normal, normal turgor - Neurologic Neurologic: CNII-XII intact - Musculoskeletal Musculoskeletal: gait normal, strength equal bilaterally - Psychiatric Psychiatric: A&O x's 3, appropriate affect, intact judgment & insight Results CBC & Chem 7: 03/18/17 06:08 03/18/17 06:08 Labs: Abnormal Lab Results - Last 24 Hours (Table) 03/17/17 03/17/17 03/17/17 Range/Units 11:07 11:07 11:07 RBC (4.30-5.90) m/uL Hgb (13.0-17.5) gm/dL Hct (39.0-53.0) % MCHC (31.0-37.0) g/dL RDW (11.5-15.5) % Plt Count (150-450) k/uL Lymphocytes # (Manual) (1.0-4.8) k/uL PT (9.0-12.0) sec INR (<1.2) APTT (22.0-30.0) sec Sodium 136 L (137-145) mmol/L BUN 63 H (9-20) mg/dL Creatinine 2.20 H (0.66-1.25) mg/dL Glucose 101 H (74-99) mg/dL Phosphorus 4.7 H (2.5-4.5) mg/dL Magnesium 2.5 H (1.6-2.3) mg/dL Total Bilirubin 2.0 H (0.2-1.3) mg/dL Alkaline Phosphatase 181 H (38-126) U/L Ammonia 73 H (<30) umol/L CK-MB (CK-2) 2.6 H* (0.0-2.4) ng/mL 03/17/17 03/17/17 Range/Units 11:07 11:07 RBC 3.43 L (4.30-5.90) m/uL Hgb 9.4 L (13.0-17.5) gm/dL Hct 31.1 L (39.0-53.0) % MCHC 30.3 L (31.0-37.0) g/dL RDW 19.8 H (11.5-15.5) % Plt Count 120 L (150-450) k/uL Lymphocytes # (Manual) 0.52 L (1.0-4.8) k/uL PT 41.0 H (9.0-12.0) sec INR 4.6 H (<1.2) APTT 35.4 H (22.0-30.0) sec Sodium (137-145) mmol/L BUN (9-20) mg/dL Creatinine (0.66-1.25) mg/dL Glucose (74-99) mg/dL Phosphorus (2.5-4.5) mg/dL Magnesium (1.6-2.3) mg/dL Total Bilirubin (0.2-1.3) mg/dL Alkaline Phosphatase (38-126) U/L Ammonia (<30) umol/L CK-MB (CK-2) (0.0-2.4) ng/mL Laboratory Results WBC 4.3 k/uL (3.8-10.6) 03/17/17 11:07 RBC 3.43 m/uL (4.30-5.90) L 03/17/17 11:07 Hgb 9.4 gm/dL (13.0-17.5) L 03/17/17 11:07 Hct 31.1 % (39.0-53.0) L 03/17/17 11:07 MCV 90.7 fL (80.0-100.0) 03/17/17 11:07 MCH 27.5 pg (25.0-35.0) 03/17/17 11:07 MCHC 30.3 g/dL (31.0-37.0) L 03/17/17 11:07 RDW 19.8 % (11.5-15.5) H 03/17/17 11:07 Plt Count 120 k/uL (150-450) L 03/17/17 11:07 Neutrophils % (Manual) 80 % 03/17/17 11:07 Band Neutrophils % 1 % 03/17/17 11:07 Lymphocytes % (Manual) 12 % 03/17/17 11:07 Monocytes % (Manual) 5 % 03/17/17 11:07 Eosinophils % (Manual) 2 % 03/17/17 11:07 Neutrophils # (Manual) 3.40 k/uL (1.3-7.7) 03/17/17 11:07 Lymphocytes # (Manual) 0.52 k/uL (1.0-4.8) L 03/17/17 11:07 Monocytes # (Manual) 0.22 k/uL (0-1.0) 03/17/17 11:07 Eosinophils # (Manual) 0.09 k/uL (0-0.7) 03/17/17 11:07 Nucleated RBCs 0 /100 WBC (0-0) 03/17/17 11:07 Hypochromasia Slight 03/17/17 11:07 Poikilocytosis (manual Present 03/17/17 11:07 Anisocytosis Slight 03/17/17 11:07 Target Cells Present 03/17/17 11:07 PT 41.0 sec (9.0-12.0) H 03/17/17 11:07 INR 4.6 (<1.2) H 03/17/17 11:07 APTT 35.4 sec (22.0-30.0) H 03/17/17 11:07 Sodium 136 mmol/L (137-145) L 03/17/17 11:07 Potassium 5.0 mmol/L (3.5-5.1) 03/17/17 11:07 Chloride 102 mmol/L (98-107) 03/17/17 11:07 Carbon Dioxide 23 mmol/L (22-30) 03/17/17 11:07 Anion Gap 11 mmol/L 03/17/17 11:07 BUN 63 mg/dL (9-20) H 03/17/17 11:07 Creatinine 2.20 mg/dL (0.66-1.25) H 03/17/17 11:07 Est GFR (MDRD) Af Amer 36 (>60 ml/min/1.73 sqM) 03/17/17 11:07 Est GFR (MDRD) Non-Af 30 (>60 ml/min/1.73 sqM) 03/17/17 11:07 Glucose 101 mg/dL (74-99) H 03/17/17 11:07 Plasma Lactic Acid Moustapha 1.0 mmol/L (0.7-2.0) 03/17/17 11:07 Calcium 9.7 mg/dL (8.4-10.2) 03/17/17 11:07 Phosphorus 4.7 mg/dL (2.5-4.5) H 03/17/17 11:07 Magnesium 2.5 mg/dL (1.6-2.3) H 03/17/17 11:07 Total Bilirubin 2.0 mg/dL (0.2-1.3) H 03/17/17 11:07 AST 29 U/L (17-59) 03/17/17 11:07 ALT 25 U/L (21-72) 03/17/17 11:07 Alkaline Phosphatase 181 U/L (38-126) H 03/17/17 11:07 Ammonia 73 umol/L (<30) H 03/17/17 11:07 Total Creatine Kinase 122 U/L (55-170) 03/17/17 11:07 CK-MB (CK-2) 2.6 ng/mL (0.0-2.4) H* 03/17/17 11:07 CK-MB (CK-2) Rel Index 2.1 03/17/17 11:07 Troponin I 0.014 ng/mL (0.000-0.034) 03/17/17 11:07 Total Protein 6.4 g/dL (6.3-8.2) 03/17/17 11:07 Albumin 3.6 g/dL (3.5-5.0) 03/17/17 11:07 Lipase 213 U/L (23-300) 03/17/17 11:07 Urine Color Yellow 03/17/17 11:07 Urine Appearance Clear (Clear) 03/17/17 11:07 Urine pH 5.5 (5.0-8.0) 03/17/17 11:07 Ur Specific [place] 1.009 (1.001-1.035) 03/17/17 11:07 Urine Protein Negative (Negative) 03/17/17 11:07 Urine Glucose (UA) Negative (Negative) 03/17/17 11:07 Urine Ketones Negative (Negative) 03/17/17 11:07 Urine Blood Negative (Negative) 03/17/17 11:07 Urine Nitrite Negative (Negative) 03/17/17 11:07 Urine Bilirubin Negative (Negative) 03/17/17 11:07 Urine Urobilinogen <2.0 mg/dL (<2.0) 03/17/17 11:07 Ur Leukocyte Esterase Negative (Negative) 03/17/17 11:07 Serum Alcohol <10 mg/dL 03/17/17 11:07 Influenza Type A RNA Not Detected (Not Detectd) 03/17/17 15:02 Influenza Type B (PCR) Not Detected (Not Detectd) 03/17/17 15:02 Thrombosis Risk Factor Assmnt - DVT/VTE Prophylaxis DVT/VTE Prophylaxis: Pharmacologic Prophylaxis ordered, Mechanical Prophylaxis ordered - Choose All That Apply Each Risk Factor Represents 2 Points: Age 61-74 years Thrombosis Risk Factor Assessment Total Risk Factor Score: 2 Thrombosis Risk Factor Assessment Level: Low Risk Assessment and Plan Plan: 1. Anasarca, presenting with difficulty of urinating we need to rule out urinary retention, and other urological pathology, postvoid residual be obtained , CAT scan of the abdomen and pelvis were requested, consult was made with Dr. Castro nephrology as well as Dr. Roper for elevated liver function tests and ammonia levels, echocardiogram will be obtained, monitor for oliguria,, echocardiogram, LAURA, hepatitis panel secondary to elevated liver function test if no urine output patient will be placed on a Razo catheter 2. Elevated ammonia level without any current evidence of hepatic encephalopathy, patient has mild hyperbilirubinemia, hepatitis panel to be obtained with Dr. Luna evaluate for autoimmune hepatitis, patient had diarrhea today, we'll going to monitor ammonia levels, lactulose to be started 3 History of Tachybrady syndrome [place] [address] Henriquez outpatient for pacemaker interrogation 3. Atrial fibrillation chronically on Coumadin, Coumadin on hold temporarily until etiology of anasarca is completed possible kidney biopsy and liver biopsy 4. Chronic cardiorenal syndrome with CK D stage III with significant azotemia since 2016, creatinine is between 2.7-3.25 in the year 2016, currently at 2.2, Dr. Castro will be consulted, echocardiogram to be obtained, consult cardiology 4. hypertension for which he is on metoprolol spiromolactone. no medication changes were made 5. hyperlipedemia on statin 6. chronic anticoagulation with coumadin with therapeutic inrs 7. CAD history 9. Hypothyroidism, on levothyroxine 25 mg daily, TSH will be obtained 10. DVT prophylaxis on heparin subcu, patient will be transitioned over to Coumadin should there be no biopsy both from GI and nephrology services 11. Epistaxis Coumadin on hold also secondary to epistaxis uncontrolled, a saline nasal spray, and low-dose Sudafed when necessary for nasal congestion
--- NOTE | 2017-03-18 15:41 | P.PN ---
Subjective Progress Note Date: 03/18/17 This is a 66 year old pleasant gentleman aptient of Dr Antonio Bardales. he has underlying history of aftrial fibrillation, hypertension and ventricular arrythmia for which and cardiac ablation on 10/[address] Henriquez, CVA, diabetes mellitus type 2 atrial fibrillation, DVT,. Presenting to the emergency room secondary to difficulty of urinating, acute onset, he also has swelling scrotum, swelling lower extremity and some swelling in the abdomen. Patient denies any chest pain or shortness of breath, patient's on Lasix 40 mg twice a day, as well as Coumadin for anticoagulation Weight gain started approximately since , when patient was noted to have some leg cramps, a friend advised him to drink more fluids, thereafter patient started drinking more of fluids 64 ounces minimum per day, patient started gaining the weight and had 35 pound weight gain since January. Patient denies any PND or shortness of breath he does have worsening leg swelling and abdominal ascites no chest pain patient denies jaundice He was subsequently seen in the emergency room, urinalysis was negative for pyuria or hematuria, specific gravity was 1.009, creatinine of 2.2, BUN of 63, alkaline phosphatase elevated at 181, ammonia elevated at 73, bilirubin elevated at 2.0 however AST ALT normal, alkaline phosphase elevated abdominal ultrasound shows gallbladder surgically absent, patient has fatty liver, and bile duct 0.7 cm, no hydronephrosis, bladder within normal limits, no bladder jets noted, as patient has pitting edema and abdomen with the examination the patient complains of epistaxis leg cramps and abdominal distention with ascites and difficulties urinating, post void residual was requested, bladder scan noted as above negative for any bladder distention or hydronephrosis. Consult was made Dr. Castro and Dr. Luna gastroenterology Previous workup in 2016 echocardiogram was reviewed, EF at that time was 20-25% , right ventricle enlargement, mild aortic valve sclerosis without stenosis, left ventricle wall thickness is normal, mild MR and mild TR and mild TR 03/18: CAT scan of the abdomen and pelvis without contrast revealed cardiomegaly with small right pleural effusion this could relate to congestive heart failure. Mild ascites. Scrotal hydroceles. Piotr Ks edema. No free air. 20% compression deformity of T12 that is probably old. Patient has been seen by nephrology for chronic kidney disease stage IIIB/4. Lasix was increased to 80 mg twice daily. Iron studies were ordered. We have added in Ferrlecit for 2 doses, LAURA, acute hepatitis panel, protein electrophoresis, repeat ammonia level. Patient does state he had diarrheal last night after he drank the contrast for CAT scan. Patient has been seen by GI and AFP etc ordered. Lactulose ordered. Objective - Vital Signs Vital signs: Vital Signs Temp 97.6 F 03/18/17 08:52 Pulse 75 03/18/17 08:52 Resp 17 03/18/17 08:52 BP 108/59 03/18/17 08:52 Pulse Ox 99 03/18/17 08:52 Intake & Output 03/17/17 03/18/17 03/18/17 18:59 06:59 18:59 Intake Total 200 118 Output Total 150 675 Balance -150 -475 118 Weight 109.316 kg 108.9 kg Intake: Oral 200 118 Output: Urine 150 675 Other: Voiding Method Toilet Toilet Toilet Urinal Urinal # Voids 200 - Exam General appearance: cooperative, no acute distress, obese - EENT Eyes: anicteric sclerae, EOMI, PERRLA, dentition normal, normal appearance ENT: hearing grossly normal, normal oropharynx - Neck Neck: normal ROM - Respiratory Respiratory: bilateral: CTA, negative: diminished, dullness, rales, rhonchi - Cardiovascular Rhythm: regular Heart sounds: normal: S1, S2 Abnormal Heart Sounds: no systolic murmur, no diastolic murmur, no rub, no S3 Gallop, no S4 Gallop, no click, no other leg Peripheral Edema: bilateral: 4+ - Gastrointestinal General gastrointestinal: organomegaly, soft - Genitourinary Male genitourinary: scrotal edema - Integumentary Integumentary: normal, normal turgor - Neurologic Neurologic: CNII-XII intact - Musculoskeletal Musculoskeletal: gait normal, strength equal bilaterally - Psychiatric Psychiatric: A&O x's 3, appropriate affect, intact judgment & insight - Labs CBC & Chem 7: 03/18/17 06:08 03/18/17 06:08 Labs: Abnormal Lab Results - Last 24 Hours (Table) 03/17/17 03/17/17 03/17/17 Range/Units 11:07 11:07 11:07 RBC 3.43 L (4.30-5.90) m/uL Hgb 9.4 L (13.0-17.5) gm/dL Hct 31.1 L (39.0-53.0) % MCHC 30.3 L (31.0-37.0) g/dL RDW 19.8 H (11.5-15.5) % Plt Count 120 L (150-450) k/uL Lymphocytes # (Manual) 0.52 L (1.0-4.8) k/uL PT (9.0-12.0) sec INR (<1.2) Sodium (137-145) mmol/L Carbon Dioxide (22-30) mmol/L BUN (9-20) mg/dL Creatinine (0.66-1.25) mg/dL Iron 39 L (65-175) ug/dL Iron Saturation 11.02 L (15.00-50.00) Ammonia (<30) umol/L CK-MB (CK-2) 2.6 H* (0.0-2.4) ng/mL 03/18/17 03/18/17 03/18/17 Range/Units 06:08 06:08 06:08 RBC 3.28 L (4.30-5.90) m/uL Hgb 9.3 L (13.0-17.5) gm/dL Hct 31.0 L (39.0-53.0) % MCHC 30.1 L (31.0-37.0) g/dL RDW 18.2 H (11.5-15.5) % Plt Count 126 L (150-450) k/uL Lymphocytes # (Manual) 0.38 L (1.0-4.8) k/uL PT 42.8 H (9.0-12.0) sec INR 4.7 H (<1.2) Sodium 134 L (137-145) mmol/L Carbon Dioxide 20 L (22-30) mmol/L BUN 67 H (9-20) mg/dL Creatinine 2.30 H (0.66-1.25) mg/dL Iron (65-175) ug/dL Iron Saturation (15.00-50.00) Ammonia (<30) umol/L CK-MB (CK-2) (0.0-2.4) ng/mL 01/30/18 Range/Units 11:17 RBC (4.30-5.90) m/uL Hgb (13.0-17.5) gm/dL Hct (39.0-53.0) % MCHC (31.0-37.0) g/dL RDW (11.5-15.5) % Plt Count (150-450) k/uL Lymphocytes # (Manual) (1.0-4.8) k/uL PT (9.0-12.0) sec INR (<1.2) Sodium (137-145) mmol/L Carbon Dioxide (22-30) mmol/L BUN (9-20) mg/dL Creatinine (0.66-1.25) mg/dL Iron (65-175) ug/dL Iron Saturation (15.00-50.00) Ammonia 102 H (<30) umol/L CK-MB (CK-2) (0.0-2.4) ng/mL Microbiology - Last 24 Hours (Table) 03/17/17 11:07 Urine Culture - Final Urine,Voided Assessment and Plan Plan: 1. Anasarca, presenting with difficulty of urinating we need to rule out urinary retention, and other urological pathology, postvoid residual be obtained , CAT scan of the abdomen and pelvis were requested, consult was made with Dr. Castro nephrology as well as Dr. Roper for elevated liver function tests and ammonia levels, echocardiogram will be obtained, monitor for oliguria,, echocardiogram, LAURA, hepatitis panel secondary to elevated liver function test if no urine output patient will be placed on a Razo catheter 2. Elevated ammonia level without any current evidence of hepatic encephalopathy, patient has mild hyperbilirubinemia, hepatitis panel to be obtained with Dr. Luna evaluate for autoimmune hepatitis, patient had diarrhea today, we'll going to monitor ammonia levels, lactulose to be started 3 History of Tachybrady syndrome with [place] [address] Henriquez outpatient for pacemaker interrogation 3. Atrial fibrillation chronically on Coumadin, Coumadin on hold temporarily until etiology of anasarca is completed possible kidney biopsy and liver biopsy 4. Chronic cardiorenal syndrome with CK D stage III with significant azotemia since 2015, creatinine is between 2.7-3.25 in the year 2016, currently at 2.2, Dr. Castro will be consulted, echocardiogram to be obtained, consult cardiology 4. hypertension for which he is on metoprolol spiromolactone. no medication changes were made 5. hyperlipedemia on statin 6. chronic anticoagulation with coumadin with therapeutic inrs 7. CAD history 9. Hypothyroidism, on levothyroxine 25 mg daily, TSH will be obtained 10. DVT prophylaxis on heparin subcu, patient will be transitioned over to Coumadin should there be no biopsy both from GI and nephrology services 11. Epistaxis Coumadin on hold also secondary to epistaxis uncontrolled, a saline nasal spray, and low-dose Sudafed when necessary for nasal congestion Impression and plan of care have been directed as dictated by the signing physician. Tanika Romero nurse practitioner acting as scribe for signing physician.
[2017-03-18] MEDS: SODIUM FERRIC GLUCONAT-SUCROSE 125 MG in SODIUM CHLORIDE 0.9% 100 ML IVPB SCH (16:24)
[2017-03-18] MEDS: LACTULOSE 20 GM/30 ML CUP PO SCH ×2 (16:24→21:27)
[2017-03-18 16:47] LABS: Iron Saturation 10.63 (15.00-50.00)
[2017-03-18 19:09] LABS: Protein, Total 6.1 g/dL (6.2-8.2)
[2017-03-18 19:16] LABS: Alpha Fetoprotein, Tumor Mkr 5.7 ng/mL (0.0-7.9)
[2017-03-18 20:12] LABS: Hepatitis A Antibody IgM Non-Reactive (Non-Reactive); Hepatitis B Core IgM Non-Reactive (Non-Reactive)
[2017-03-18] MEDS: SODIUM CHLORIDE 0.65% NASAL SPRAY 44 ML BTL NASAL SCH (20:37)
[2017-03-18] MEDS ORDERED: RIFAXIMIN 550 MG TABLET PO SCH (21:00)
[2017-03-19] MEDS: LEVOTHYROXINE 25 MCG TAB PO SCH (06:36)
[2017-03-19 06:53] LABS: INR 4.8 (<1.2); Prothrombin Time 43.6 sec (9.0-12.0)
[2017-03-19 07:06] LABS: Calcium 9.7 mg/dL (8.4-10.2); Magnesium 2.3 mg/dL (1.6-2.3); Potassium 4.6 mmol/L (3.5-5.1)
[2017-03-19 07:09] LABS: Anisocytosis Slight; HCT 30.3 % (39.0-53.0); HGB 9.1 gm/dL (13.0-17.5); Hypochromasia Moderate; MCH 28.3 pg (25.0-35.0); MCV 94.3 fL (80.0-100.0); Macrocytosis Slight; Mean Platelet Volume 10.4; Platelet Count 112 k/uL (150-450); RBC 3.22 m/uL (4.30-5.90); RDW 18.9 % (11.5-15.5); WBC 3.9 k/uL (3.8-10.6)
[2017-03-19 07:51] LABS: Myelocytes # (M) 0.04 k/uL (0); Myelocytes % 1 %; Neutrophils % (M) 61 %; Nucleated Red Blood Cells 0 /100 WBC (0-0)
[2017-03-19 07:53] LABS: Band Neutrophils % 1 %; Eosinophils # (M) 0.23 k/uL (0-0.7); Lymphocytes # (M) 0.62 k/uL (1.0-4.8); Total Cells Counted 200
[2017-03-19 07:54] LABS: Poikilocytosis (M) Present
--- NOTE | 2017-03-19 08:35 | P.PN ---
Subjective Progress Note Date: 03/19/17 Principal diagnosis: Hyperammonemia 66-year-old male with an extensive cardiac history ischemic cardiomyopathy evaluated yesterday in regards to elevated serum ammonia levels without mental status changes. Ammonia level improved to 43 this morning. Patient was started on lactulose. Serologic chronic liver disease workup so far unremarkable and still in process. Objective - Vital Signs Vital signs: Vital Signs Temp 96.7 F L 03/19/17 04:00 Pulse 69 03/19/17 04:00 Resp 17 03/19/17 04:00 BP 100/60 03/19/17 04:00 Pulse Ox 98 03/19/17 04:00 Intake & Output 03/18/17 03/19/17 03/19/17 18:59 06:59 18:59 Intake Total 535 200 120 Output Total 1150 750 Balance -615 -550 120 Weight 109 kg Intake: Oral 535 120 Blood Product 200 Output: Urine 1150 750 Other: Voiding Method Toilet Toilet Urinal Urinal # Voids 1 # Bowel Movements 2 - Exam General appearance: The patient is alert, oriented, in no acute distress. HET: Head is normocephalic and atraumatic. Pupils are equal and reactive. Oropharynx is clear without lesions. Neck: Supple without lymphadenopathy. Trachea midline. Heart: S1 S2. Regular rate and rhythm. Lungs: No crackles or wheezes are heard. Abdomen: Soft, distended with bowel sounds. No peritoneal signs. No palpable organomegaly or masses. Scrotal edema. Extremities: +2/3 bilateral lower extremity edema.. Neurological: No focal deficits. Strength and sensation are grossly intact. - Labs CBC & Chem 7: 03/19/17 06:25 03/19/17 06:25 Labs: Abnormal Lab Results - Last 24 Hours (Table) 03/18/17 03/18/17 03/18/17 Range/Units 06:08 06:08 11:17 RBC (4.30-5.90) m/uL Hgb (13.0-17.5) gm/dL Hct (39.0-53.0) % MCHC (31.0-37.0) g/dL RDW (11.5-15.5) % Plt Count (150-450) k/uL Lymphocytes # (Manual) 0.38 L (1.0-4.8) k/uL Myelocytes # (Manual) (0) k/uL PT (9.0-12.0) sec INR (<1.2) Sodium (137-145) mmol/L BUN (9-20) mg/dL Creatinine (0.66-1.25) mg/dL Iron 37 L (65-175) ug/dL Iron Saturation 10.63 L (15.00-50.00) Ammonia 102 H (<30) umol/L Total Protein (PEP) (6.2-8.2) g/dL 03/18/17 03/19/17 03/19/17 Range/Units : 06:25 06:25 RBC (4.30-5.90) m/uL Hgb (13.0-17.5) gm/dL Hct (39.0-53.0) % MCHC (31.0-37.0) g/dL RDW (11.5-15.5) % Plt Count (150-450) k/uL Lymphocytes # (Manual) (1.0-4.8) k/uL Myelocytes # (Manual) (0) k/uL PT (9.0-12.0) sec INR (<1.2) Sodium 134 L (137-145) mmol/L BUN 69 H (9-20) mg/dL Creatinine 2.20 H (0.66-1.25) mg/dL Iron (65-175) ug/dL Iron Saturation (15.00-50.00) Ammonia 43 H (<30) umol/L Total Protein (PEP) 6.1 L (6.2-8.2) g/dL 03/19/17 03/19/17 Range/Units 06:25 06:25 RBC 3.22 L (4.30-5.90) m/uL Hgb 9.1 L (13.0-17.5) gm/dL Hct 30.3 L (39.0-53.0) % MCHC 30.0 L (31.0-37.0) g/dL RDW 18.9 H (11.5-15.5) % Plt Count 112 L (150-450) k/uL Lymphocytes # (Manual) 0.62 L (1.0-4.8) k/uL Myelocytes # (Manual) 0.04 H (0) k/uL PT 43.6 H (9.0-12.0) sec INR 4.8 H (<1.2) Sodium (137-145) mmol/L BUN (9-20) mg/dL Creatinine (0.66-1.25) mg/dL Iron (65-175) ug/dL Iron Saturation (15.00-50.00) Ammonia (<30) umol/L Total Protein (PEP) (6.2-8.2) g/dL Microbiology - Last 24 Hours (Table) 03/17/17 11:07 Urine Culture - Final Urine,Voided Assessment and Plan (1) Hyperammonemia Narrative/Plan: Asymptomatic hyperammonemia. The etiology is unclear. Underlying chronic liver disease possible metabolic acidemia type deficiency cannot be excluded. Current Visit: Yes Status: Acute Code(s): E72.20 - DISORDER OF UREA CYCLE METABOLISM, UNSPECIFIED SNOMED Code(s): 4192347 (2) Cardiorenal syndrome with renal failure Narrative/Plan: Chronic kidney disease stage IIIB Current Visit: Yes Status: Acute Code(s): I13.10 - HYP HRT & CHR KDNY DIS W/ O HRT FAIL, W STG 1-4/UNSP CHR KDNY; N19 - UNSPECIFIED KIDNEY FAILURE SNOMED Code(s): 093502369 (3) Hyperbilirubinemia Narrative/Plan: Suspect passive venous congestion related Current Visit: Yes Status: Acute Code(s): E80.6 - OTHER DISORDERS OF BILIRUBIN METABOLISM SNOMED Code(s): 47729340 Plan: 1. Full serologic workup for chronic liver disease still processing. Total and free serum measurement of l-carnitine pending. 2. Continue Lactulose 20 g 3 times daily. Will follow closely with you. Further recommendations forthcoming. Assessment and plan of care discussed with Dr. Luna
[2017-03-19] MEDS: METOPROLOL TARTRATE 25 MG TAB PO SCH ×2 (08:45→21:36)
[2017-03-19] MEDS: SPIRONOLACTONE 25 MG TAB PO SCH (08:45)
[2017-03-19] MEDS: ENOXAPARIN 40 MG/0.4 ML SYRINGE SQ SCH (08:45)
[2017-03-19] MEDS: SODIUM CHLORIDE 0.65% NASAL SPRAY 44 ML BTL NASAL SCH ×2 (08:46→21:36)
[2017-03-19] MEDS: FUROSEMIDE 10 MG/ML 10 ML VIAL IV SCH ×2 (08:46→21:35)
[2017-03-19] MEDS: SODIUM BICARBONATE TAB 650 MG TAB PO SCH ×2 (08:46→21:36)
[2017-03-19] MEDS: LACTULOSE 20 GM/30 ML CUP PO SCH ×3 (08:46→21:37)
[2017-03-19] MEDS ORDERED: SODIUM FERRIC GLUCONAT-SUCROSE 125 MG in SODIUM CHLORIDE 0.9% 100 ML IVPB SCH (10:15)
--- NOTE | 2017-03-19 10:44 | P.PN ---
Subjective Patient is seen in follow-up for chronic kidney disease. Patient has chronic kidney disease stage IIIB/4 with baseline creatinine in the range of 1.6-2.5. Creatinine is stable at 2.2 today. He is currently maintained on Lasix 80 mg IV twice daily. Patient states his urine output has improved. Edema is improving. Oral intake is good. No vomiting or diarrhea. He does of systolic CHF with ejection fraction of 20-25%. Vital signs are stable. General: The patient appeared well nourished and normally developed. HEENT: Head exam is unremarkable. Neck is without jugular venous distension. LUNGS: Lungs are clear to auscultation and percussion. Breath sounds decreased. HEART: Rate and Rhythm are regular. First and second heart sounds normal. No murmurs, rubs or gallops. ABDOMEN: Abdominal exam reveals normal bowel sounds. Non-tender and non- distended. No evidence of peritonitis. EXTREMITITES: 1+ edema. Objective - Vital Signs Vital signs: Vital Signs Temp 97.8 F 03/19/17 09:14 Pulse 75 03/19/17 09:14 Resp 17 03/19/17 09:14 BP 93/61 03/19/17 09:14 Pulse Ox 99 03/19/17 09:14 Intake & Output 03/18/17 03/19/17 03/19/17 18:59 06:59 18:59 Intake Total 535 200 120 Output Total 1150 750 150 Balance -615 -550 -30 Weight 109 kg Intake: Oral 535 120 Blood Product 200 Output: Urine 1150 750 150 Other: Voiding Method Toilet Toilet Toilet Urinal Urinal Urinal # Voids 1 # Bowel Movements 2 - Labs CBC & Chem 7: 03/19/17 06:25 03/19/17 06:25 Labs: Abnormal Lab Results - Last 24 Hours (Table) 03/18/17 03/18/17 03/18/17 Range/Units 06:08 11:17 13:31 RBC (4.30-5.90) m/uL Hgb (13.0-17.5) gm/dL Hct (39.0-53.0) % MCHC (31.0-37.0) g/dL RDW (11.5-15.5) % Plt Count (150-450) k/uL Lymphocytes # (Manual) (1.0-4.8) k/uL Myelocytes # (Manual) (0) k/uL PT (9.0-12.0) sec INR (<1.2) Sodium (137-145) mmol/L BUN (9-20) mg/dL Creatinine (0.66-1.25) mg/dL Iron 37 L (65-175) ug/dL Iron Saturation 10.63 L (15.00-50.00) Ammonia 102 H (<30) umol/L Total Protein (PEP) 6.1 L (6.2-8.2) g/dL 03/19/17 03/19/17 03/19/17 Range/Units 06:25 06:25 06:25 RBC (4.30-5.90) m/uL Hgb (13.0-17.5) gm/dL Hct (39.0-53.0) % MCHC (31.0-37.0) g/dL RDW (11.5-15.5) % Plt Count (150-450) k/uL Lymphocytes # (Manual) (1.0-4.8) k/uL Myelocytes # (Manual) (0) k/uL PT 43.6 H (9.0-12.0) sec INR 4.8 H (<1.2) Sodium 134 L (137-145) mmol/L BUN 69 H (9-20) mg/dL Creatinine 2.20 H (0.66-1.25) mg/dL Iron (65-175) ug/dL Iron Saturation (15.00-50.00) Ammonia 43 H (<30) umol/L Total Protein (PEP) (6.2-8.2) g/dL 03/19/17 Range/Units 06:25 RBC 3.22 L (4.30-5.90) m/uL Hgb 9.1 L (13.0-17.5) gm/dL Hct 30.3 L (39.0-53.0) % MCHC 30.0 L (31.0-37.0) g/dL RDW 18.9 H (11.5-15.5) % Plt Count 112 L (150-450) k/uL Lymphocytes # (Manual) 0.62 L (1.0-4.8) k/uL Myelocytes # (Manual) 0.04 H (0) k/uL PT (9.0-12.0) sec INR (<1.2) Sodium (137-145) mmol/L BUN (9-20) mg/dL Creatinine (0.66-1.25) mg/dL Iron (65-175) ug/dL Iron Saturation (15.00-50.00) Ammonia (<30) umol/L Total Protein (PEP) (6.2-8.2) g/dL Microbiology - Last 24 Hours (Table) 03/17/17 11:07 Urine Culture - Final Urine,Voided Assessment and Plan Plan: assessment: #1. Chronic kidney disease stage IIIB/4 secondary to nephrosclerosis and cardiorenal syndrome with baseline creatinine in the range of 1.6-2.5. Urinalysis is quite benign. No evidence of hydronephrosis noted. GFR is at baseline. #2. Volume overload. Improving. #3. Systolic CHF with ejection fraction of 20-25%. #4. Anemia of chronic kidney disease. Iron deficiency present. #5. Metabolic acidosis secondary to chronic kidney disease. Improved. #6. Hypervolemic hyponatremia. Stable. Plan: Maintain Lasix 80 mg IV twice daily. Ferrlecit 125 mg IV daily for 3 days. First dose today. Avoid nephrotoxic agents and hypotensive episodes. Maintain low salt diet and 1500 mL fluid restriction. Continue oral sodium bicarbonate. Repeat electrolytes in the morning. Daily weights.
--- NOTE | 2017-03-19 10:52 | ECHOF ---
Referral Reason:cardiomyopathy, ascites MEASUREMENTS -------- HEIGHT: 190.5 cm WEIGHT: 108.9 kg BP: 106/63 RVIDd: 4.1 cm (< 3.3) IVSd: 1.2 cm (0.6 - 1.1) LVIDd: 5.4 cm (3.9 - 5.3) LVPWd: 1.4 cm (0.6 - 1.1) IVSs: 1.5 cm LVIDs: 4.9 cm LVPWs: 1.5 cm LA Diam: 4.8 cm (2.7 - 3.8) LAESV Index (A-L): 50.76 ml/m Ao Diam: 3.5 cm (2.0 - 3.7) AV Cusp: 2.4 cm (1.5 - 2.6) MV EXCURSION: 22.495 mm (> 18.000) MV EF SLOPE: 88 mm/s (70 - 150) EPSS: 1.4 cm RAP: 15.00 mmHg RVSP: 41.23 mmHg FINDINGS -------- This was a technically adequate study. The left ventricular size is normal. There is moderate concentric left ventricular hypertrophy. O verall left ventricular systolic function is severely impaired with, an EF between 20 - 25 %. The right ventricle is moderately enlarged. LA is severely dilated >40 ml/m2 The right atrium is normal in size. 3 ml of Lumason was utilized for enhancement of images. There is mild aortic valve sclerosis. Trace amount of aortic regurgitation. The mitral valve leaflets are mildly thickened. Mild mitral annular calcification present. No timur ral regurgitation. Mild tricuspid regurgitation present. There is mild pulmonary hypertension. The right ventricular systolic pressure, as measured by Doppler, is 41.23mmHg. The pulmonic valve was not well visualized. The aortic root size is normal. The inferior vena cava is dilated with no significant inspiratory collapse which is consistent estima jenny right atrial pressure of >15 mmHg. There is no pericardial effusion. CONCLUSIONS -------- 1. This was a technically adequate study. 2. The left ventricular size is normal. 3. There is moderate concentric left ventricular hypertrophy. 4. Overall left ventricular systolic function is severely impaired with, an EF between 20 - 25 %. 5. The right ventricle is moderately enlarged. 6. LA is severely dilated >40 ml/m2 7. The right atrium is normal in size. 8. 3 ml of Lumason was utilized for enhancement of images. 9. There is mild aortic valve sclerosis. 10. Trace amount of aortic regurgitation. 11. The mitral valve leaflets are mildly thickened. 12. Mild mitral annular calcification present. 13. No mitral regurgitation. 14. Mild tricuspid regurgitation present. 15. There is mild pulmonary hypertension. 16. The right ventricular systolic pressure, as measured by Doppler, is 41.23mmHg. 17. The pulmonic valve was not well visualized. 18. The aortic root size is normal. 19. The inferior vena cava is dilated with no significant inspiratory collapse which is consistent es timated right atrial pressure of >15 mmHg. 20. There is no pericardial effusion. RESAW FEEDER: Elly Morales RDCS
[2017-03-19] MEDS: SODIUM FERRIC GLUCONAT-SUCROSE 125 MG in SODIUM CHLORIDE 0.9% 100 ML IVPB SCH (10:58)
--- NOTE | 2017-03-19 11:25 | CONS ---
CONSULTATION CHIEF COMPLAINT: Abdominal distention. This is a 66-year-old gentleman with history of nonischemic cardiomyopathy, status post AICD, history of cholecystectomy, paroxysmal atrial fibrillation, DVT, status post ablation, comes to the hospital with progressively worsening cramps, not feeling well and weight gain, abdominal distention and leg edema. His ascites and leg swelling have been getting progressively worse. He developed renal failure with a BUN of 63 and creatinine of 2.2. He has generalized anasarca that seems to be primarily related to the renal failure. While he has ischemic cardiomyopathy, the admission does not seem to be related to congestive heart failure at the moment. At the time of my evaluation, he is feeling better. Breathing has improved. His INR is elevated at 4.8. I do not have a BNP, I am going to obtain one. PAST MEDICAL HISTORY: Significant for cardiomyopathy that is nonischemic, status post AICD, atrial fibrillation, hypothyroidism. MEDICATIONS: At home included Aldactone, Lopressor, Synthroid, Lasix, and Coumadin. ALLERGIES: There are no known drug allergies. FAMILY HISTORY: Negative for premature coronary artery disease. SOCIAL HISTORY: Negative for current smoking, EtOH abuse or drug abuse. REVIEW OF SYSTEMS: HEENT is unremarkable. CARDIAC: As described above. RESPIRATORY: As described above. GI: As described above. GENITOURINARY: Negative. ALLERGY/IMMUNOLOGY: Negative, SKIN: Negative. MUSCULOSKELETAL: Significant for arthritis. PSYCHOSOCIAL: Negative. ENDOCRINE: Negative. DERMATOLOGICAL: Negative. CONSTITUTIONAL: Negative. ONCOLOGICAL: Negative. Rest of the system review is not relevant. PHYSICAL EXAMINATION: Patient is afebrile. Heart rate is 75 beats per minute, blood pressure is 100/60, respiratory rate is 16, O2 sat is 99%. There is no jugular venous distention. Chest exam reveals diminished air entry at the bases. Heart exam reveals first and second heart sounds and a systolic murmur at the apex. Abdomen is soft. Exam of extremities reveals bilateral 3+ pitting edema. Abdomen is distended and shows ascites. LABS: Show a potassium of 4.6, creatinine is 2.2. INR is 4.8. ASSESSMENT: 1. Generalized anasarca, probably related to his chronic renal failure, congestive heart failure may be contributing to it. 2. Chronic ischemic cardiomyopathy status post AICD. 3. History of atrial fibrillation. 4. Coagulopathy. PLAN: Please hold the Coumadin at this time. Hold the Aldactone. I will treat the patient with IV Lasix. Continue the beta blockers. I will obtain a 2D echo to reassess LV function. Prognosis is guarded. SERGO / DON: [id number] /
--- NOTE | 2017-03-19 12:34 | P.PN ---
Subjective Progress Note Date: 03/19/17 This is a 66 year old pleasant gentleman aptient of Dr Antonio Bardales. he has underlying history of aftrial fibrillation, hypertension and ventricular arrythmia for which and cardiac ablation on 10/[address] Henriquez, CVA, diabetes mellitus type 2 atrial fibrillation, DVT,. Presenting to the emergency room secondary to difficulty of urinating, acute onset, he also has swelling scrotum, swelling lower extremity and some swelling in the abdomen. Patient denies any chest pain or shortness of breath, patient's on Lasix 40 mg twice a day, as well as Coumadin for anticoagulation Weight gain started approximately since , when patient was noted to have some leg cramps, a friend advised him to drink more fluids, thereafter patient started drinking more of fluids 64 ounces minimum per day, patient started gaining the weight and had 35 pound weight gain since January. Patient denies any PND or shortness of breath he does have worsening leg swelling and abdominal ascites no chest pain patient denies jaundice He was subsequently seen in the emergency room, urinalysis was negative for pyuria or hematuria, specific gravity was 1.009, creatinine of 2.2, BUN of 63, alkaline phosphatase elevated at 181, ammonia elevated at 73, bilirubin elevated at 2.0 however AST ALT normal, alkaline phosphase elevated abdominal ultrasound shows gallbladder surgically absent, patient has fatty liver, and bile duct 0.7 cm, no hydronephrosis, bladder within normal limits, no bladder jets noted, as patient has pitting edema and abdomen with the examination the patient complains of epistaxis leg cramps and abdominal distention with ascites and difficulties urinating, post void residual was requested, bladder scan noted as above negative for any bladder distention or hydronephrosis. Consult was made Dr. Castro and Dr. Luna gastroenterology Previous workup in 2016 echocardiogram was reviewed, EF at that time was 20-25% , right ventricle enlargement, mild aortic valve sclerosis without stenosis, left ventricle wall thickness is normal, mild MR and mild TR and mild TR 03/18: CAT scan of the abdomen and pelvis without contrast revealed cardiomegaly with small right pleural effusion this could relate to congestive heart failure. Mild ascites. Scrotal hydroceles. Piotr Ks edema. No free air. 20% compression deformity of T12 that is probably old. Patient has been seen by nephrology for chronic kidney disease stage IIIB/4. Lasix was increased to 80 mg twice daily. Iron studies were ordered. We have added in Ferrlecit for 2 doses, LAURA, acute hepatitis panel, protein electrophoresis, repeat ammonia level. Patient does state he had diarrheal last night after he drank the contrast for CAT scan. Patient has been seen by GI and AFP etc ordered. Lactulose ordered. 03/19: Repeat ammonia yesterday was 102 and this morning 43. INR 4.8. BUN 69 creatinine 2.2. Hemoglobin is stable at 9.1. Patient has had 2 bowel movements since starting lactulose. He is receiving his second dose of Ferrlecit today. Acute hepatitis panel was negative, LAURA negative, AFP tumor marker negative, angiotensin-converting enzyme are within normal limits. Carnitine, ceruloplasmin, smooth muscle antibody and protein electrophoresis are pending. patient has nasal congestion and still having slight nasal bleeding. Afrin added. Noted cardiology consult was added for cardiorenal syndrome. Admitted during has been added by us 10 mg 3 times daily, Pascual wraps to bilateral lower extremities were edema. Objective - Vital Signs Vital signs: Vital Signs Temp 96.7 F L 03/19/17 04:00 Pulse 69 03/19/17 04:00 Resp 17 03/19/17 04:00 BP 100/60 03/19/17 04:00 Pulse Ox 98 03/19/17 04:00 Intake & Output 03/18/17 03/19/17 03/19/17 18:59 06:59 18:59 Intake Total 535 200 120 Output Total 1150 750 Balance -615 -550 120 Weight 109 kg Intake: Oral 535 120 Blood Product 200 Output: Urine 1150 750 Other: Voiding Method Toilet Toilet Urinal Urinal # Voids 1 # Bowel Movements 2 - Exam General appearance: cooperative, no acute distress, obese - EENT Eyes: anicteric sclerae, EOMI, PERRLA, dentition normal, normal appearance ENT: hearing grossly normal, normal oropharynx - Neck Neck: normal ROM - Respiratory Respiratory: bilateral: CTA, negative: diminished, dullness, rales, rhonchi - Cardiovascular Rhythm: regular Heart sounds: normal: S1, S2 Abnormal Heart Sounds: no systolic murmur, no diastolic murmur, no rub, no S3 Gallop, no S4 Gallop, no click, no other leg Peripheral Edema: bilateral: 4+ - Gastrointestinal General gastrointestinal: organomegaly, soft - Genitourinary Male genitourinary: scrotal edema - Integumentary Integumentary: normal, normal turgor - Neurologic Neurologic: CNII-XII intact - Musculoskeletal Musculoskeletal: gait normal, strength equal bilaterally - Psychiatric Psychiatric: A&O x's 3, appropriate affect, intact judgment & insight - Labs CBC & Chem 7: 03/19/17 06:25 03/19/17 06:25 Labs: Abnormal Lab Results - Last 24 Hours (Table) 03/18/17 03/18/17 03/18/17 Range/Units 06:08 06:08 11:17 RBC (4.30-5.90) m/uL Hgb (13.0-17.5) gm/dL Hct (39.0-53.0) % MCHC (31.0-37.0) g/dL RDW (11.5-15.5) % Plt Count (150-450) k/uL Lymphocytes # (Manual) 0.38 L (1.0-4.8) k/uL Myelocytes # (Manual) (0) k/uL PT (9.0-12.0) sec INR (<1.2) Sodium (137-145) mmol/L BUN (9-20) mg/dL Creatinine (0.66-1.25) mg/dL Iron 37 L (65-175) ug/dL Iron Saturation 10.63 L (15.00-50.00) Ammonia 102 H (<30) umol/L Total Protein (PEP) (6.2-8.2) g/dL 03/18/17 03/19/17 03/19/17 Range/Units 13:31 06:25 06:25 RBC (4.30-5.90) m/uL Hgb (13.0-17.5) gm/dL Hct (39.0-53.0) % MCHC (31.0-37.0) g/dL RDW (11.5-15.5) % Plt Count (150-450) k/uL Lymphocytes # (Manual) (1.0-4.8) k/uL Myelocytes # (Manual) (0) k/uL PT (9.0-12.0) sec INR (<1.2) Sodium 134 L (137-145) mmol/L BUN 69 H (9-20) mg/dL Creatinine 2.20 H (0.66-1.25) mg/dL Iron (65-175) ug/dL Iron Saturation (15.00-50.00) Ammonia 43 H (<30) umol/L Total Protein (PEP) 6.1 L (6.2-8.2) g/dL 03/19/17 03/19/17 Range/Units 06:25 06:25 RBC 3.22 L (4.30-5.90) m/uL Hgb 9.1 L (13.0-17.5) gm/dL Hct 30.3 L (39.0-53.0) % MCHC 30.0 L (31.0-37.0) g/dL RDW 18.9 H (11.5-15.5) % Plt Count 112 L (150-450) k/uL Lymphocytes # (Manual) 0.62 L (1.0-4.8) k/uL Myelocytes # (Manual) 0.04 H (0) k/uL PT 43.6 H (9.0-12.0) sec INR 4.8 H (<1.2) Sodium (137-145) mmol/L BUN (9-20) mg/dL Creatinine (0.66-1.25) mg/dL Iron (65-175) ug/dL Iron Saturation (15.00-50.00) Ammonia (<30) umol/L Total Protein (PEP) (6.2-8.2) g/dL Microbiology - Last 24 Hours (Table) 03/17/17 11:07 Urine Culture - Final Urine,Voided Assessment and Plan Plan: 1. Anasarca, presenting with difficulty of urinating we need to rule out urinary retention, and other urological pathology, postvoid residual be obtained , CAT scan of the abdomen and pelvis were requested, consult was made with Dr. Castro nephrology as well as Dr. Roper for elevated liver function tests and ammonia levels, echocardiogram will be obtained, monitor for oliguria,, echocardiogram, LAURA, hepatitis panel secondary to elevated liver function test . admitted during, Pascual wraps to bilateral lower extremities. 2. Elevated ammonia level without any current evidence of hepatic encephalopathy, patient has mild hyperbilirubinemia, hepatitis panel to be obtained with Dr. Luna evaluate for autoimmune hepatitis, patient had diarrhea today, we'll going to monitor ammonia levels, lactulose to be started 3 History of Tachybrady syndrome with [place]ICD [place] [address] Henriquez outpatient for pacemaker interrogation 3. Atrial fibrillation chronically on Coumadin, Coumadin on hold temporarily until etiology of anasarca is completed possible kidney biopsy and liver biopsy 4. Chronic cardiorenal syndrome with CK D stage III with significant azotemia since 2016, creatinine is between 2.7-3.25 in the year 2016, currently at 2.2, Dr. Castro will be consulted, echocardiogram to be obtained, consult cardiology 4. hypertension for which he is on metoprolol spiromolactone. no medication changes were made 5. hyperlipedemia on statin 6. chronic anticoagulation with coumadin with therapeutic inrs 7. CAD history 9. Hypothyroidism, on levothyroxine 25 mg daily, TSH will be obtained 10. DVT prophylaxis on heparin subcu, patient will be transitioned over to Coumadin should there be no biopsy both from GI and nephrology services 11. Epistaxis Coumadin on hold also secondary to epistaxis uncontrolled, a saline nasal spray, and low-dose Sudafed when necessary for nasal congestionhim a Afrin nasal spray. Impression and plan of care have been directed as dictated by the signing physician. Tanika Romero nurse practitioner acting as scribe for signing physician.
[2017-03-19] MEDS: MIDODRINE 5 MG TAB PO SCH ×2 (16:33→16:44)
[2017-03-19] MEDS: OXYMETAZOLINE 0.05% NASL SPRAY 1 SPRAY BOTTLE NASAL SCH ×2 (16:35→21:37)
[2017-03-20 06:35] LABS: Albumin 3.5 g/dL (3.5-5.0); Calcium 9.9 mg/dL (8.4-10.2); Potassium 4.7 mmol/L (3.5-5.1); Total Bilirubin 1.9 mg/dL (0.2-1.3); Total Protein 6.3 g/dL (6.3-8.2)
[2017-03-20] MEDS: MIDODRINE 5 MG TAB PO SCH ×3 (06:52→16:11)
[2017-03-20] MEDS: LEVOTHYROXINE 25 MCG TAB PO SCH (06:52)
[2017-03-20] MEDS: OXYMETAZOLINE 0.05% NASL SPRAY 1 SPRAY BOTTLE NASAL SCH ×3 (08:14→21:17)
[2017-03-20] MEDS: SODIUM CHLORIDE 0.65% NASAL SPRAY 44 ML BTL NASAL SCH ×2 (08:14→21:17)
[2017-03-20] MEDS: SPIRONOLACTONE 25 MG TAB PO SCH (08:15)
[2017-03-20] MEDS: METOPROLOL TARTRATE 25 MG TAB PO SCH ×2 (08:15→21:16)
[2017-03-20] MEDS: LACTULOSE 20 GM/30 ML CUP PO SCH ×3 (08:15→21:16)
[2017-03-20] MEDS: SODIUM BICARBONATE TAB 650 MG TAB PO SCH ×2 (08:16→21:16)
[2017-03-20] MEDS: FUROSEMIDE 10 MG/ML 10 ML VIAL IV SCH ×2 (08:17→21:16)
[2017-03-20] MEDS: ENOXAPARIN 40 MG/0.4 ML SYRINGE SQ SCH (08:19)
[2017-03-20] MEDS ORDERED: SODIUM FERRIC GLUCONAT-SUCROSE 125 MG in SODIUM CHLORIDE 0.9% 100 ML IVPB SCH (09:00)
[2017-03-20 09:48] LABS: Albumin 3.73 g/dL (3.80-4.90)
--- NOTE | 2017-03-20 09:52 | P.PN ---
Subjective Patient is seen in follow-up for chronic kidney disease. Patient has chronic kidney disease stage IIIB/4 with baseline creatinine in the range of 1.6-2.5. Creatinine is stable at 2.13 today. He is currently maintained on Lasix 80 mg IV twice daily. Patient states his urine output has improved. Edema is improving. Oral intake is good. No vomiting or diarrhea. He does of systolic CHF with ejection fraction of 20-25%. He feels tired. No other complaints at this time. Vital signs are stable. General: The patient appeared well nourished and normally developed. HEENT: Head exam is unremarkable. Neck is without jugular venous distension. LUNGS: Lungs are clear to auscultation and percussion. Breath sounds decreased. HEART: Rate and Rhythm are regular. First and second heart sounds normal. No murmurs, rubs or gallops. ABDOMEN: Abdominal exam reveals normal bowel sounds. Non-tender and non- distended. No evidence of peritonitis. EXTREMITITES: 1+ edema. Objective - Vital Signs Vital signs: Vital Signs Temp 96.0 F L 03/20/17 04:00 Pulse 60 03/20/17 04:00 Resp 21 03/20/17 04:00 BP 104/59 03/20/17 04:00 Pulse Ox 96 03/20/17 04:00 Intake & Output 03/19/17 03/20/17 03/20/17 18:59 06:59 18:59 Intake Total 340 480 236 Output Total 800 1800 Balance -460 -1320 236 Weight 107.9 kg Intake: Oral 340 480 236 Output: Urine 800 1800 Other: Voiding Method Toilet Toilet Urinal Urinal - Labs CBC & Chem 7: 03/19/17 06:25 03/20/17 05:43 Labs: Abnormal Lab Results - Last 24 Hours (Table) 03/20/17 Range/Units 05:43 Sodium 135 L (137-145) mmol/L BUN 69 H (9-20) mg/dL Creatinine 2.13 H (0.66-1.25) mg/dL Total Bilirubin 1.9 H (0.2-1.3) mg/dL Alkaline Phosphatase 167 H (38-126) U/L Assessment and Plan Plan: assessment: #1. Chronic kidney disease stage IIIB/4 secondary to nephrosclerosis and cardiorenal syndrome with baseline creatinine in the range of 1.6-2.5. Urinalysis is quite benign. No evidence of hydronephrosis noted. GFR is at baseline. #2. Volume overload. Improving. #3. Systolic CHF with ejection fraction of 20-25%. #4. Anemia of chronic kidney disease. Iron deficiency present. #5. Metabolic acidosis secondary to chronic kidney disease. Improved. #6. Hypervolemic hyponatremia. Stable. Plan: Maintain Lasix 80 mg IV twice daily. Ferrlecit 125 mg IV daily for 3 days. Second dose today. Avoid nephrotoxic agents and hypotensive episodes. Maintain low salt diet and 1500 mL fluid restriction. Continue oral sodium bicarbonate. Repeat electrolytes in the morning. Daily weights.
--- NOTE | 2017-03-20 10:08 | P.PN ---
Subjective Progress Note Date: 03/20/17 Principal diagnosis: Hyperammonemia 66-year-old male with an extensive cardiac history ischemic cardiomyopathy evaluated in regards to elevated serum ammonia levels without mental status changes. Ammonia level improved yesterday. Serologic chronic liver disease workup so far unremarkable. Objective - Vital Signs Vital signs: Vital Signs Temp 96.0 F L 03/20/17 04:00 Pulse 60 03/20/17 04:00 Resp 21 03/20/17 04:00 BP 104/59 03/20/17 04:00 Pulse Ox 96 03/20/17 04:00 Intake & Output 03/19/17 03/20/17 03/20/17 18:59 06:59 18:59 Intake Total 340 480 236 Output Total 800 1800 Balance -460 -1320 236 Weight 107.9 kg Intake: Oral 340 480 236 Output: Urine 800 1800 Other: Voiding Method Toilet Toilet Urinal Urinal - Exam General appearance: The patient is alert, oriented, in no acute distress. HET: Head is normocephalic and atraumatic. Pupils are equal and reactive. Oropharynx is clear without lesions. Neck: Supple without lymphadenopathy. Trachea midline. Heart: S1 S2. Regular rate and rhythm. Lungs: No crackles or wheezes are heard. Abdomen: Soft, distended with bowel sounds. No peritoneal signs. No palpable organomegaly or masses. Scrotal edema. Extremities: +2/3 bilateral lower extremity edema.. Neurological: No focal deficits. Strength and sensation are grossly intact. - Labs CBC & Chem 7: 03/19/17 06:25 03/20/17 05:43 Labs: Abnormal Lab Results - Last 24 Hours (Table) 03/20/17 Range/Units 05:43 Sodium 135 L (137-145) mmol/L BUN 69 H (9-20) mg/dL Creatinine 2.13 H (0.66-1.25) mg/dL Total Bilirubin 1.9 H (0.2-1.3) mg/dL Alkaline Phosphatase 167 H (38-126) U/L Assessment and Plan (1) Hyperammonemia Narrative/Plan: Asymptomatic hyperammonemia. The etiology is unclear. Underlying chronic liver disease possible metabolic acidemia type deficiency cannot be excluded. Current Visit: Yes Status: Acute Code(s): E72.20 - DISORDER OF UREA CYCLE METABOLISM, UNSPECIFIED SNOMED Code(s): 5063793 (2) Cardiorenal syndrome with renal failure Narrative/Plan: Chronic kidney disease stage IIIB Current Visit: Yes Status: Acute Code(s): I13.10 - HYP HRT & CHR KDNY DIS W/ O HRT FAIL, W STG 1-4/UNSP CHR KDNY; N19 - UNSPECIFIED KIDNEY FAILURE SNOMED Code(s): 441343594 (3) Hyperbilirubinemia Narrative/Plan: Suspect passive venous congestion related Current Visit: Yes Status: Acute Code(s): E80.6 - OTHER DISORDERS OF BILIRUBIN METABOLISM SNOMED Code(s): 20848234 (4) Warfarin-induced coagulopathy Current Visit: Yes Status: Acute Code(s): D68.32 - HEMORRHAGIC DISORD D/T EXTRINSIC CIRCULATING ANTICOAGULANTS; T45.515A - ADVERSE EFFECT OF ANTICOAGULANTS, INITIAL ENCOUNTER SNOMED Code(s): 02885677 Plan: 1. Continue with symptomatic supportive care. Carnitine level pending. Continue with lactulose. Liver biopsy not planned at this time. Patient will be followed up in the outpatient setting after discharge for further evaluation and recommendations. We'll continue to follow.
--- NOTE | 2017-03-20 11:20 | P.PN ---
Subjective Progress Note Date: 03/20/17 This is a 66 year old pleasant gentleman aptient of Dr Antonio Bardales. he has underlying history of aftrial fibrillation, hypertension and ventricular arrythmia for which and cardiac ablation on 10/[address] Henriquez, CVA, diabetes mellitus type 2 atrial fibrillation, DVT,. Presenting to the emergency room secondary to difficulty of urinating, acute onset, he also has swelling scrotum, swelling lower extremity and some swelling in the abdomen. Patient denies any chest pain or shortness of breath, patient's on Lasix 40 mg twice a day, as well as Coumadin for anticoagulation Weight gain started approximately since , when patient was noted to have some leg cramps, a friend advised him to drink more fluids, thereafter patient started drinking more of fluids 64 ounces minimum per day, patient started gaining the weight and had 35 pound weight gain since January. Patient denies any PND or shortness of breath he does have worsening leg swelling and abdominal ascites no chest pain patient denies jaundice He was subsequently seen in the emergency room, urinalysis was negative for pyuria or hematuria, specific gravity was 1.009, creatinine of 2.2, BUN of 63, alkaline phosphatase elevated at 181, ammonia elevated at 73, bilirubin elevated at 2.0 however AST ALT normal, alkaline phosphase elevated abdominal ultrasound shows gallbladder surgically absent, patient has fatty liver, and bile duct 0.7 cm, no hydronephrosis, bladder within normal limits, no bladder jets noted, as patient has pitting edema and abdomen with the examination the patient complains of epistaxis leg cramps and abdominal distention with ascites and difficulties urinating, post void residual was requested, bladder scan noted as above negative for any bladder distention or hydronephrosis. Consult was made Dr. Castro and Dr. Luna gastroenterology Previous workup in 2016 echocardiogram was reviewed, EF at that time was 20-25% , right ventricle enlargement, mild aortic valve sclerosis without stenosis, left ventricle wall thickness is normal, mild MR and mild TR and mild TR 03/18: CAT scan of the abdomen and pelvis without contrast revealed cardiomegaly with small right pleural effusion this could relate to congestive heart failure. Mild ascites. Scrotal hydroceles. Piotr Ks edema. No free air. 20% compression deformity of T12 that is probably old. Patient has been seen by nephrology for chronic kidney disease stage IIIB/4. Lasix was increased to 80 mg twice daily. Iron studies were ordered. We have added in Ferrlecit for 2 doses, LAURA, acute hepatitis panel, protein electrophoresis, repeat ammonia level. Patient does state he had diarrheal last night after he drank the contrast for CAT scan. Patient has been seen by GI and AFP etc ordered. Lactulose ordered. 03/19: Repeat ammonia yesterday was 102 and this morning 43. INR 4.8. BUN 69 creatinine 2.2. Hemoglobin is stable at 9.1. Patient has had 2 bowel movements since starting lactulose. He is receiving his second dose of Ferrlecit today. Acute hepatitis panel was negative, LAURA negative, AFP tumor marker negative, angiotensin-converting enzyme are within normal limits. Carnitine, ceruloplasmin, smooth muscle antibody and protein electrophoresis are pending. patient has nasal congestion and still having slight nasal bleeding. Afrin added. Noted cardiology consult was added for cardiorenal syndrome. Admitted during has been added by us 10 mg 3 times daily, Pascual wraps to bilateral lower extremities were edema. 03/20: patient has been seen by cardiology for generalized anasarca probably related to chronic renal failureand congestive heart failure may be contributing to it. Dr. Babb is recommended holding Aldactone. Echocardiogram reveals EF of 20-25%, moderate concentric left ventricular hypertrophy, L a severely dilated at greater than 40, trace aortic regurgitation, mild tricuspid regurgitation, mild pulmonary hypertension, right ventricular systolic pressure is 41.23. Dr. Inman is recommended Lasix twice daily, Ferrlecit for 3 addition days. He has completed 3 doses already. Continue 1500 mL fluid restriction and low-salt diet, sodium bicarb. Dr. Kari Luna plans for folowup as an OP. Aldactone discontinued. Objective - Vital Signs Vital signs: Vital Signs Temp 96.0 F L 03/20/17 04:00 Pulse 60 03/20/17 04:00 Resp 21 03/20/17 04:00 BP 104/59 03/20/17 04:00 Pulse Ox 96 03/20/17 04:00 Intake & Output 03/19/17 03/20/17 03/20/17 18:59 06:59 18:59 Intake Total 340 480 Output Total 800 1800 Balance -460 -1320 Weight 107.9 kg Intake: Oral 340 480 Output: Urine 800 1800 Other: Voiding Method Toilet Toilet Urinal Urinal - Exam General appearance: cooperative, no acute distress, obese - EENT Eyes: anicteric sclerae, EOMI, PERRLA, dentition normal, normal appearance ENT: hearing grossly normal, normal oropharynx - Neck Neck: normal ROM - Respiratory Respiratory: bilateral: CTA, negative: diminished, dullness, rales, rhonchi - Cardiovascular Rhythm: regular Heart sounds: normal: S1, S2 Abnormal Heart Sounds: no systolic murmur, no diastolic murmur, no rub, no S3 Gallop, no S4 Gallop, no click, no other leg Peripheral Edema: bilateral: 4+ - Gastrointestinal General gastrointestinal: organomegaly, soft - Genitourinary Male genitourinary: scrotal edema - Integumentary Integumentary: normal, normal turgor - Neurologic Neurologic: CNII-XII intact - Musculoskeletal Musculoskeletal: gait normal, strength equal bilaterally - Psychiatric Psychiatric: A&O x's 3, appropriate affect, intact judgment & insight - Labs CBC & Chem 7: 03/19/17 06:25 03/20/17 05:43 Labs: Abnormal Lab Results - Last 24 Hours (Table) 03/19/17 03/20/17 Range/Units 06:25 05:43 Lymphocytes # (Manual) 0.62 L (1.0-4.8) k/uL Myelocytes # (Manual) 0.04 H (0) k/uL Sodium 135 L (137-145) mmol/L BUN 69 H (9-20) mg/dL Creatinine 2.13 H (0.66-1.25) mg/dL Total Bilirubin 1.9 H (0.2-1.3) mg/dL Alkaline Phosphatase 167 H (38-126) U/L Assessment and Plan Plan: 1. Anasarca, presenting with difficulty of urinating secondary to chronic kidney disease. consults with nephrology, GI and cardiology appreciated. Continue Lasix 80 mg IV twice daily, low-salt diet, 1500 mL fluid restriction, sodium bicarb, Pascual wraps to bilateral lower extremities. 2. Elevated ammonia level without any current evidence of hepatic encephalopathy, patient has mild hyperbilirubinemia, hepatitis panel to be obtained with Dr. Luna evaluate for autoimmune hepatitis, patient had diarrhea today, we'll going to monitor ammonia levels, lactulose to be started 3. History of Tachybrady syndrome and chronic ischemic cardiomyopathy with AICD [place] [address] Henriquez outpatient for pacemaker interrogation 4. Chronic atrial fibrillation on Coumadin, Coumadin on hold temporarily until etiology of anasarca is completed possible kidney biopsy and liver biopsy 5. Chronic cardiorenal syndrome with CKD stage III with significant azotemia since 2016, creatinine is between 2.7-3.25 in the year 2016, currently at 2.2, Dr. Castro will be consulted, echocardiogram to be obtained, consult cardiology 6. hypertension for which he is on metoprolol spiromolactone. no medication changes were made 7. hyperlipedemia on statin 8. chronic anticoagulation with coumadin with hypercoagulopathy. Coumadin is on hold 9. CAD history 10. Hypothyroidism, on levothyroxine 25 mg daily, TSH will be obtained 11. DVT prophylaxis on heparin subcu, patient will be transitioned over to Coumadin should there be no biopsy both from GI and nephrology services 12. Epistaxis Coumadin on hold, saline nasal spray, and low-dose Sudafed, Afrin nasal spray. Impression and plan of care have been directed as dictated by the signing physician. Tanika Romero nurse practitioner acting as scribe for signing physician.
--- NOTE | 2017-03-20 13:59 | P.PN ---
Subjective Progress Note Date: 03/20/17 Principal diagnosis: Acute renal failure This is a 66-year-old gentleman with history of paroxysmal atrial fibrillation, hypertension, ventricular arrhythmia with prior ablation, nonischemic cardiomyopathy with prior AICD, diabetes, CVA, prior DVT, hypothyroidism, who presented to the hospital with difficulty in urinating, patient also has significant swelling in his lower extremities, and abdominal area. According to the patient, he's been putting on weight since . Patient continues to be on IV Lasix. His weight is down 2 kg today. Hemoglobin 9.1, platelet count 112, INR 4.8, sodium 135, potassium 4.7, BUN and 69, creatinine 2.1. Echocardiogram with Doppler study reveals an ejection fraction of 20-25% with moderate concentric LVH, pulmonary hypertension. Patient is on fluid restrictions and Aldactone continues to be on hold. Objective - Vital Signs Vital signs: Vital Signs Temp 98.5 F 03/20/17 12:00 Pulse 68 03/20/17 12:00 Resp 18 03/20/17 12:00 BP 103/63 03/20/17 12:00 Pulse Ox 98 03/20/17 13:28 Intake & Output 03/19/17 03/20/17 03/20/17 18:59 06:59 18:59 Intake Total 340 480 236 Output Total 800 1800 Balance -460 -1320 236 Weight 107.9 kg Intake: Oral 340 480 236 Output: Urine 800 1800 Other: Voiding Method Toilet Toilet Toilet Urinal Urinal Urinal # Voids 500 - Exam PHYSICAL EXAMINATION: HEENT: Head is atraumatic, normocephalic. Pupils equal, round. Neck is supple. There is no elevated jugular venous pressure. HEART EXAMINATION: Heart S1, S2 normal. No murmur or gallop heard. CHEST EXAMINATION: Lungs are clear with mild diminished air entry to the bases , No chest wall tenderness is noted on palpation or with deep breathing. ABDOMEN: Soft, nontender. Bowel sounds are heard. No organomegaly noted. EXTREMITIES: 2+ peripheral pulses with 2+ evidence of peripheral edema and no calf tenderness noted. NEUROLOGIC patient is awake, alert and oriented -3. . - Labs CBC & Chem 7: 03/19/17 06:25 03/20/17 05:43 Labs: Abnormal Lab Results - Last 24 Hours (Table) 03/18/17 03/20/17 Range/Units 13:31 05:43 Sodium 135 L (137-145) mmol/L BUN 69 H (9-20) mg/dL Creatinine 2.13 H (0.66-1.25) mg/dL Total Bilirubin 1.9 H (0.2-1.3) mg/dL Alkaline Phosphatase 167 H (38-126) U/L Albumin (PEP) 3.73 L (3.80-4.90) g/dL Opfsq-9-Ngccciqbc 0.55 L (0.60-1.00) g/dL Assessment and Plan Plan: Assessment and plan #1 chronic kidney disease stage IV #2 systolic congestive heart failure acute on chronic #3 anemia #4 nonischemic cardiomyopathy status post prior AICD implantation #5 paroxysmal A. fib, on Coumadin for anticoagulation INR 4.8 yesterday #6 hypertension #7 hyperlipidemia #8 hypothyroidism Plan From cardiology's perspective we will recommend to continue current medications. Diuretics as per nephrology. DNP note has been reviewed, I agree with a documented findings and plan of care. Patient was seen and examined.
[2017-03-21] MEDS: MIDODRINE 5 MG TAB PO SCH ×3 (05:56→16:47)
[2017-03-21] MEDS: LEVOTHYROXINE 25 MCG TAB PO SCH (05:56)
[2017-03-21 07:21] LABS: Anisocytosis Slight; HCT 32.1 % (39.0-53.0); HGB 9.6 gm/dL (13.0-17.5); Hypochromasia Moderate; MCH 28.2 pg (25.0-35.0); MCHC 29.9 g/dL (31.0-37.0); MCV 94.5 fL (80.0-100.0); Macrocytosis Slight; Platelet Count 118 k/uL (150-450); RBC 3.39 m/uL (4.30-5.90); RDW 18.6 % (11.5-15.5); WBC 4.6 k/uL (3.8-10.6)
[2017-03-21 07:36] LABS: Albumin 3.3 g/dL (3.5-5.0); Calcium 9.8 mg/dL (8.4-10.2); INR 3.4 (<1.2); Potassium 4.6 mmol/L (3.5-5.1); Total Bilirubin 1.7 mg/dL (0.2-1.3); Total Protein 6.1 g/dL (6.3-8.2)
[2017-03-21 07:37] LABS: Prothrombin Time 30.6 sec (9.0-12.0)
[2017-03-21] MEDS: ENOXAPARIN 40 MG/0.4 ML SYRINGE SQ SCH (08:22)
[2017-03-21] MEDS: SODIUM CHLORIDE 0.65% NASAL SPRAY 44 ML BTL NASAL SCH ×2 (08:22→22:22)
[2017-03-21] MEDS: OXYMETAZOLINE 0.05% NASL SPRAY 1 SPRAY BOTTLE NASAL SCH ×3 (08:22→22:22)
[2017-03-21] MEDS: FUROSEMIDE 10 MG/ML 10 ML VIAL IV SCH ×3 (08:22→23:10)
[2017-03-21] MEDS: LACTULOSE 20 GM/30 ML CUP PO SCH ×3 (08:23→22:22)
[2017-03-21] MEDS: SODIUM BICARBONATE TAB 650 MG TAB PO SCH ×2 (08:23→20:34)
[2017-03-21] MEDS: METOPROLOL TARTRATE 25 MG TAB PO SCH ×2 (08:23→20:34)
[2017-03-21] MEDS ORDERED: BISACODYL 5 MG TABLET.DR PO PRN (10:46)
--- NOTE | 2017-03-21 11:28 | P.PN ---
Subjective Progress Note Date: 03/21/17 Principal diagnosis: Acute renal failure This is a 66-year-old gentleman with history of paroxysmal atrial fibrillation, hypertension, ventricular arrhythmia with prior ablation, nonischemic cardiomyopathy with prior AICD, diabetes, CVA, prior DVT, hypothyroidism, who presented to the hospital with difficulty in urinating, patient also has significant swelling in his lower extremities, and abdominal area. According to the patient, he's been putting on weight since . Patient continues to be on IV Lasix. His weight is down 2 kg today. Hemoglobin 9.1, platelet count 112, INR 4.8, sodium 135, potassium 4.7, BUN and 69, creatinine 2.1. Echocardiogram with Doppler study reveals an ejection fraction of 20-25% with moderate concentric LVH, pulmonary hypertension. Patient is on fluid restrictions and Aldactone continues to be on hold. 02/18/2017 Patient seen and examined this morning, sitting up at the bedside, breathing is stable, edema is significantly improving. Objective - Vital Signs Vital signs: Vital Signs Temp 94.8 F L 03/21/17 10:17 Pulse 65 03/21/17 10:17 Resp 18 03/21/17 10:17 BP 110/69 03/21/17 10:17 Pulse Ox 98 03/21/17 10:17 Intake & Output 03/20/17 03/21/17 03/21/17 18:59 06:59 18:59 Intake Total 473 0 472 Output Total 1740 Balance 473 -1740 472 Weight 107.3 kg Intake: Oral 473 0 472 Output: Urine 1740 Other: Voiding Method Toilet Toilet Toilet Urinal Urinal Urinal # Voids 500 1 - Exam PHYSICAL EXAMINATION: HEENT: Head is atraumatic, normocephalic. Pupils equal, round. Neck is supple. There is no elevated jugular venous pressure. HEART EXAMINATION: Heart S1, S2 normal. No murmur or gallop heard. CHEST EXAMINATION: Lungs are clear with mild diminished air entry to the bases , No chest wall tenderness is noted on palpation or with deep breathing. ABDOMEN: Soft, nontender. Bowel sounds are heard. No organomegaly noted. EXTREMITIES: 2+ peripheral pulses with 2+ evidence of peripheral edema and no calf tenderness noted. NEUROLOGIC patient is awake, alert and oriented -3. . - Labs CBC & Chem 7: 03/21/17 07:04 03/21/17 07:04 Labs: Abnormal Lab Results - Last 24 Hours (Table) 03/18/17 03/21/17 03/21/17 Range/Units 13:31 07:04 07:04 RBC 3.39 L (4.30-5.90) m/uL Hgb 9.6 L (13.0-17.5) gm/dL Hct 32.1 L (39.0-53.0) % MCHC 29.9 L (31.0-37.0) g/dL RDW 18.6 H (11.5-15.5) % Plt Count 118 L (150-450) k/uL PT (9.0-12.0) sec INR (<1.2) Sodium 136 L (137-145) mmol/L BUN 68 H (9-20) mg/dL Creatinine 2.03 H (0.66-1.25) mg/dL Total Bilirubin 1.7 H (0.2-1.3) mg/dL Alkaline Phosphatase 155 H (38-126) U/L Ammonia (<30) umol/L Total Protein 6.1 L (6.3-8.2) g/dL Albumin 3.3 L (3.5-5.0) g/dL Albumin (PEP) 3.73 L (3.80-4.90) g/dL Xteio-9-Erlxxvqxh 0.55 L (0.60-1.00) g/dL 03/21/17 03/21/17 Range/Units 07:04 07:04 RBC (4.30-5.90) m/uL Hgb (13.0-17.5) gm/dL Hct (39.0-53.0) % MCHC (31.0-37.0) g/dL RDW (11.5-15.5) % Plt Count (150-450) k/uL PT 30.6 H (9.0-12.0) sec INR 3.4 H (<1.2) Sodium (137-145) mmol/L BUN (9-20) mg/dL Creatinine (0.66-1.25) mg/dL Total Bilirubin (0.2-1.3) mg/dL Alkaline Phosphatase (38-126) U/L Ammonia 63 H (<30) umol/L Total Protein (6.3-8.2) g/dL Albumin (3.5-5.0) g/dL Albumin (PEP) (3.80-4.90) g/dL Hauod-1-Gimpgzcvo (0.60-1.00) g/dL Assessment and Plan Plan: Assessment and plan #1 chronic kidney disease stage IV #2 systolic congestive heart failure acute on chronic #3 anemia #4 nonischemic cardiomyopathy status post prior AICD implantation #5 paroxysmal A. fib, on Coumadin for anticoagulation INR 4.8 yesterday #6 hypertension #7 hyperlipidemia #8 hypothyroidism Plan From cardiology's perspective we will recommend to continue current medications. Diuretics as per nephrology. is going to be transferred to the medical surgical unit. We will follow him along with you now on an as- needed basis only, please don't hesitate to call with any questions. DNP note has been reviewed, I agree with a documented findings and plan of care. Patient was seen and examined.
[2017-03-21] MEDS: BISACODYL 10 MG SUPP RECTAL PRN (11:42)
[2017-03-21 13:48] LABS: Carn Ester/Free (Ratio) 0.5 (0.1-1.0)
--- NOTE | 2017-03-21 14:01 | P.PN ---
Subjective Progress Note Date: 03/21/17 This is a 66 year old pleasant gentleman aptient of Dr Antonio Bardales. he has underlying history of aftrial fibrillation, hypertension and ventricular arrythmia for which and cardiac ablation on 10/[address] Henriquez, CVA, diabetes mellitus type 2 atrial fibrillation, DVT,. Presenting to the emergency room secondary to difficulty of urinating, acute onset, he also has swelling scrotum, swelling lower extremity and some swelling in the abdomen. Patient denies any chest pain or shortness of breath, patient's on Lasix 40 mg twice a day, as well as Coumadin for anticoagulation Weight gain started approximately since , when patient was noted to have some leg cramps, a friend advised him to drink more fluids, thereafter patient started drinking more of fluids 64 ounces minimum per day, patient started gaining the weight and had 35 pound weight gain since January. Patient denies any PND or shortness of breath he does have worsening leg swelling and abdominal ascites no chest pain patient denies jaundice He was subsequently seen in the emergency room, urinalysis was negative for pyuria or hematuria, specific gravity was 1.009, creatinine of 2.2, BUN of 63, alkaline phosphatase elevated at 181, ammonia elevated at 73, bilirubin elevated at 2.0 however AST ALT normal, alkaline phosphase elevated abdominal ultrasound shows gallbladder surgically absent, patient has fatty liver, and bile duct 0.7 cm, no hydronephrosis, bladder within normal limits, no bladder jets noted, as patient has pitting edema and abdomen with the examination the patient complains of epistaxis leg cramps and abdominal distention with ascites and difficulties urinating, post void residual was requested, bladder scan noted as above negative for any bladder distention or hydronephrosis. Consult was made Dr. Castro and Dr. Luna gastroenterology Previous workup in 2016 echocardiogram was reviewed, EF at that time was 20-25% , right ventricle enlargement, mild aortic valve sclerosis without stenosis, left ventricle wall thickness is normal, mild MR and mild TR and mild TR 03/18: CAT scan of the abdomen and pelvis without contrast revealed cardiomegaly with small right pleural effusion this could relate to congestive heart failure. Mild ascites. Scrotal hydroceles. Piotr Ks edema. No free air. 20% compression deformity of T12 that is probably old. Patient has been seen by nephrology for chronic kidney disease stage IIIB/4. Lasix was increased to 80 mg twice daily. Iron studies were ordered. We have added in Ferrlecit for 2 doses, LAURA, acute hepatitis panel, protein electrophoresis, repeat ammonia level. Patient does state he had diarrheal last night after he drank the contrast for CAT scan. Patient has been seen by GI and AFP etc ordered. Lactulose ordered. 03/19: Repeat ammonia yesterday was 102 and this morning 43. INR 4.8. BUN 69 creatinine 2.2. Hemoglobin is stable at 9.1. Patient has had 2 bowel movements since starting lactulose. He is receiving his second dose of Ferrlecit today. Acute hepatitis panel was negative, LAURA negative, AFP tumor marker negative, angiotensin-converting enzyme are within normal limits. Carnitine, ceruloplasmin, smooth muscle antibody and protein electrophoresis are pending. patient has nasal congestion and still having slight nasal bleeding. Afrin added. Noted cardiology consult was added for cardiorenal syndrome. Midodrine added 10 mg 3 times daily, Pascual wraps to bilateral lower extremities for edema. 03/20: patient has been seen by cardiology for generalized anasarca probably related to chronic renal failureand congestive heart failure may be contributing to it. Dr. Babb is recommended holding Aldactone. Echocardiogram reveals EF of 20-25%, moderate concentric left ventricular hypertrophy, L a severely dilated at greater than 40, trace aortic regurgitation, mild tricuspid regurgitation, mild pulmonary hypertension, right ventricular systolic pressure is 41.23. Dr. Inman is recommended Lasix twice daily, Ferrlecit for 3 addition days. He has completed 3 doses already. Continue 1500 mL fluid restriction and low-salt diet, sodium bicarb. Dr. Kari Luna plans for folowup as an OP. Aldactone discontinued. 03/21: Ceruloplasmin within normal limits. Today INR is 3.4, BUN 68 and creatinine 2.03. Total bilirubin 1.7, alkaline phosphatase 155, ammonia level LXIII. Blood pressure has been 99/70. Patient has not had a bowel movement since Friday despite use of lactulose and Dulcolax suppository With Good Results Today. His Nasal Congestion Is Improved Today. He Denies Having Any Lightheadedness or Dizziness. Cardiology Is Now Signed off the Case. Objective - Vital Signs Vital signs: Vital Signs Temp 96.0 F L 03/21/17 04:00 Pulse 71 03/21/17 04:00 Resp 18 03/21/17 04:00 BP 99/70 03/21/17 04:00 Pulse Ox 98 03/21/17 04:00 Intake & Output 03/20/17 03/21/17 03/21/17 18:59 06:59 18:59 Intake Total 473 0 Output Total 1740 Balance 473 -1740 Weight 107.3 kg Intake: Oral 473 0 Output: Urine 1740 Other: Voiding Method Toilet Toilet Urinal Urinal # Voids 500 1 - Exam General appearance: cooperative, no acute distress, obese - EENT Eyes: anicteric sclerae, EOMI, PERRLA, dentition normal, normal appearance ENT: hearing grossly normal, normal oropharynx - Neck Neck: normal ROM - Respiratory Respiratory: bilateral: CTA, negative: diminished, dullness, rales, rhonchi - Cardiovascular Rhythm: regular Heart sounds: normal: S1, S2 Abnormal Heart Sounds: no systolic murmur, no diastolic murmur, no rub, no S3 Gallop, no S4 Gallop, no click, no other leg Peripheral Edema: bilateral: 4+ - Gastrointestinal General gastrointestinal: organomegaly, soft - Genitourinary Male genitourinary: scrotal edema - Integumentary Integumentary: normal, normal turgor - Neurologic Neurologic: CNII-XII intact - Musculoskeletal Musculoskeletal: gait normal, strength equal bilaterally - Psychiatric Psychiatric: A&O x's 3, appropriate affect, intact judgment & insight - Labs CBC & Chem 7: 03/21/17 07:04 03/21/17 07:04 Labs: Abnormal Lab Results - Last 24 Hours (Table) 03/18/17 03/21/17 03/21/17 Range/Units 13:31 07:04 07:04 RBC 3.39 L (4.30-5.90) m/uL Hgb 9.6 L (13.0-17.5) gm/dL Hct 32.1 L (39.0-53.0) % MCHC 29.9 L (31.0-37.0) g/dL RDW 18.6 H (11.5-15.5) % Plt Count 118 L (150-450) k/uL PT (9.0-12.0) sec INR (<1.2) Sodium 136 L (137-145) mmol/L BUN 68 H (9-20) mg/dL Creatinine 2.03 H (0.66-1.25) mg/dL Total Bilirubin 1.7 H (0.2-1.3) mg/dL Alkaline Phosphatase 155 H (38-126) U/L Ammonia (<30) umol/L Total Protein 6.1 L (6.3-8.2) g/dL Albumin 3.3 L (3.5-5.0) g/dL Albumin (PEP) 3.73 L (3.80-4.90) g/dL Xdiib-5-Pdnohmsvn 0.55 L (0.60-1.00) g/dL 03/21/17 03/21/17 Range/Units 07:04 07:04 RBC (4.30-5.90) m/uL Hgb (13.0-17.5) gm/dL Hct (39.0-53.0) % MCHC (31.0-37.0) g/dL RDW (11.5-15.5) % Plt Count (150-450) k/uL PT 30.6 H (9.0-12.0) sec INR 3.4 H (<1.2) Sodium (137-145) mmol/L BUN (9-20) mg/dL Creatinine (0.66-1.25) mg/dL Total Bilirubin (0.2-1.3) mg/dL Alkaline Phosphatase (38-126) U/L Ammonia 63 H (<30) umol/L Total Protein (6.3-8.2) g/dL Albumin (3.5-5.0) g/dL Albumin (PEP) (3.80-4.90) g/dL Hzffs-3-Elsgbzyht (0.60-1.00) g/dL Assessment and Plan Plan: 1. Anasarca, presenting with difficulty of urinating secondary to chronic kidney disease. consults with nephrology, GI and cardiology appreciated. Continue Lasix 80 mg IV twice daily, low-salt diet, 1500 mL fluid restriction, sodium bicarb, Pascual wraps to bilateral lower extremities. 2. Elevated ammonia level without any current evidence of hepatic encephalopathy, patient has mild hyperbilirubinemia, hepatitis panel to be obtained with Dr. Luna evaluate for autoimmune hepatitis, patient had diarrhea today, we'll going to monitor ammonia levels, lactulose to be started 3. History of Tachybrady syndrome and chronic ischemic cardiomyopathy with AICD [place] [address] Henriquez outpatient for pacemaker interrogation 4. Chronic atrial fibrillation on Coumadin, Coumadin on hold temporarily until etiology of anasarca is completed possible kidney biopsy and liver biopsy 5. Chronic cardiorenal syndrome with CKD stage III with significant azotemia since 2016, creatinine is between 2.7-3.25 in the year 2016, currently at 2.2, Dr. Castro will be consulted, echocardiogram to be obtained, consult cardiology 6. hypertension for which he is on metoprolol . no medication changes were made 7. hyperlipedemia on statin 8. chronic anticoagulation with coumadin with hypercoagulopathy. Coumadin is on hold 9. CAD history 10. Hypothyroidism, on levothyroxine 25 mg daily, TSH will be obtained 11. DVT prophylaxis on heparin subcu, patient will be transitioned over to Coumadin should there be no biopsy both from GI and nephrology services 12. Epistaxis Coumadin on hold, saline nasal spray, and low-dose Sudafed, Afrin nasal spray. 13. Constipation, resolved after Dulcolax suppository. Discharge plan: Home over the weekend Impression and plan of care have been directed as dictated by the signing physician. Tanika Romero nurse practitioner acting as scribe for signing physician.
--- NOTE | 2017-03-21 15:00 | PN ---
PROGRESS NOTE Patient is seen for followup for chronic kidney disease. He was admitted to the hospital with volume overload and increased lower extremity edema. He is currently maintained on Lasix 80 mg IV q.12 hours. His renal function is fairly stable. Patient states he has had good urine output; however, his weight is not significantly changed over the last 2 days. The 24 hour urine output was 2.6 L. PHYSICAL EXAMINATION: Blood pressure is 124/62, heart rate 62 per minute, patient is afebrile. Examination of the heart, S1, S2. Examination of the lungs, bilateral breath sounds are heard. Abdomen is soft, distended, nontender. Examination of the lower extremities shows edema 2 to 3+ bilaterally. [employer] exam is grossly intact. Patient moving all 4 extremities. LABS: Show sodium 136, potassium 4.6, BUN 68, serum creatinine 2.03, hemoglobin 9.6 g/dL. ASSESSMENT: 1. Chronic kidney disease stage IIIB to 4 with baseline creatinine about 1.6-2.3 mg/dL. Renal function close to baseline. Etiologies cardiorenal syndrome. 2. Volume overload, exacerbation of congestive heart failure, currently maintained on IV Lasix. I will increase the Lasix to 80 mg q.8 hours. 3. Systolic heart failure with ejection fraction 20%-25%. 4. Iron deficiency maintained on supplementation. 5. Hypervolemic hyponatremia. Sodium is improving with diuresis. PLAN: Increase Lasix to 60 mg q.8 hours. Repeat labs in a.m. MMSHERRILLL / NATAN: [id number] /
[2017-03-22] MEDS: LEVOTHYROXINE 25 MCG TAB PO SCH (06:40)
[2017-03-22 08:18] LABS: Anisocytosis Slight; HCT 30.2 % (39.0-53.0); HGB 9.5 gm/dL (13.0-17.5); Hypochromasia Slight; MCH 29.2 pg (25.0-35.0); MCHC 31.5 g/dL (31.0-37.0); MCV 92.4 fL (80.0-100.0); Macrocytosis Slight; Mean Platelet Volume 9.4; Platelet Count 122 k/uL (150-450); RBC 3.27 m/uL (4.30-5.90); RDW 19.5 % (11.5-15.5); WBC 4.3 k/uL (3.8-10.6)
[2017-03-22 08:22] LABS: INR 2.8 (<1.2); Prothrombin Time 25.3 sec (9.0-12.0)
[2017-03-22 08:31] LABS: Albumin 3.5 g/dL (3.5-5.0); Calcium 9.7 mg/dL (8.4-10.2); Potassium 4.4 mmol/L (3.5-5.1); Total Protein 6.5 g/dL (6.3-8.2)
[2017-03-22] MEDS: MIDODRINE 5 MG TAB PO SCH ×3 (09:01→16:31)
[2017-03-22] MEDS: METOPROLOL TARTRATE 25 MG TAB PO SCH (09:01)
[2017-03-22] MEDS: LACTULOSE 20 GM/30 ML CUP PO SCH ×4 (09:02→21:01)
[2017-03-22] MEDS: SODIUM CHLORIDE 0.65% NASAL SPRAY 44 ML BTL NASAL SCH ×2 (09:02→20:53)
[2017-03-22] MEDS: OXYMETAZOLINE 0.05% NASL SPRAY 1 SPRAY BOTTLE NASAL SCH ×3 (09:02→20:54)
[2017-03-22] MEDS: SODIUM BICARBONATE TAB 650 MG TAB PO SCH (09:02)
[2017-03-22] MEDS: FUROSEMIDE 10 MG/ML 10 ML VIAL IV SCH ×2 (09:02→20:20)
--- NOTE | 2017-03-22 10:44 | PN ---
PROGRESS NOTE DATE OF SERVICE: 03/22/17 The patient is a 66-year-old pleasant white male with history of nonischemic cardiomyopathy status post AICD placement, history of diabetes mellitus and congestive heart failure, was admitted to hospital with significant amount of weight gain, lower extremity swelling, and some abdominal distention. An ejection fraction of 20-25% with pulmonary hypertension. We have been seeing the patient because of hyperammonemia that was noted at the time of admission to the hospital. There is no history of chronic liver disease, presently undergoing workup for chronic liver disease and so far all the testing has been negative. In the meantime, the patient is doing better. Was transferred to the 4th floor. No abdominal pain. Still has some abdominal fluid retention. CT of the abdomen and pelvis done at the time of admission to the hospital did show mild ascites and subcutaneous edema. PHYSICAL EXAMINATION: She appears comfortable. No apparent distress. VITAL SIGNS: Stable. Blood pressure is 112/60, pulse rate is 64, temperature 97.7. HEENT examination is unremarkable. Conjunctivae pink. Sclerae anicteric. Oral cavity no lesions. Neck no jugular venous distention or lymph node enlargement. Chest was clear to auscultation. HEART: Regular rate and rhythm. ABDOMEN: Soft. Bowel sounds are positive. No organomegaly. Extremities: 2+ pedal edema. Skin no rashes. NEUROLOGIC: Alert and oriented x3. No focal deficits. LABS: WBC 4.3, hemoglobin 9.5, platelets are 122, BUN 67, creatinine 1.88. AST and ALT are normal. T bilirubin is 2, and alkaline phosphatase is 174. Hepatitis serologies for A, B, and C were negative. Serum ceruloplasmin is normal. Serum protein electrophoresis is normal. Antinuclear antibody is negative. Rest of the workup is pending. Serum ammonia level was 63. IMPRESSION: This is a patient with history of nonischemic cardiomyopathy, presents to the hospital with weight gain, generalized edema and mild ascites. He was also noted to have ammonia level that was elevated at 167. He has no history of chronic underlying liver disease. Presently being investigated for liver disease and so far further workup has been negative. Given his clinical presentation, the patient may have occult underlying chronic liver disease, which is manifesting in the form of hyperammonemia and mild ascites. The etiology of the liver disease so far the workup has been negative. It is possible that he may have cardiac cirrhosis of the liver. RECOMMENDATIONS: 1. At this time, we will await the rest of the workup for chronic liver disease. 2. Continue with gentle diuresis. 3. We will follow him closely during his hospital stay. Thank you for this consultation. SERGO / DON: [id number] /
--- NOTE | 2017-03-22 10:50 | P.PN ---
Subjective Progress Note Date: 03/22/17 This is a 66 year old pleasant gentleman aptient of Dr Antonio Bardales. he has underlying history of aftrial fibrillation, hypertension and ventricular arrythmia for which and cardiac ablation on 10/[address] Henriquez, CVA, diabetes mellitus type 2 atrial fibrillation, DVT,. Presenting to the emergency room secondary to difficulty of urinating, acute onset, he also has swelling scrotum, swelling lower extremity and some swelling in the abdomen. Patient denies any chest pain or shortness of breath, patient's on Lasix 40 mg twice a day, as well as Coumadin for anticoagulation Weight gain started approximately since , when patient was noted to have some leg cramps, a friend advised him to drink more fluids, thereafter patient started drinking more of fluids 64 ounces minimum per day, patient started gaining the weight and had 35 pound weight gain since January. Patient denies any PND or shortness of breath he does have worsening leg swelling and abdominal ascites no chest pain patient denies jaundice He was subsequently seen in the emergency room, urinalysis was negative for pyuria or hematuria, specific gravity was 1.009, creatinine of 2.2, BUN of 63, alkaline phosphatase elevated at 181, ammonia elevated at 73, bilirubin elevated at 2.0 however AST ALT normal, alkaline phosphase elevated abdominal ultrasound shows gallbladder surgically absent, patient has fatty liver, and bile duct 0.7 cm, no hydronephrosis, bladder within normal limits, no bladder jets noted, as patient has pitting edema and abdomen with the examination the patient complains of epistaxis leg cramps and abdominal distention with ascites and difficulties urinating, post void residual was requested, bladder scan noted as above negative for any bladder distention or hydronephrosis. Consult was made Dr. Castro and Dr. Luna gastroenterology Previous workup in 2016 echocardiogram was reviewed, EF at that time was 20-25% , right ventricle enlargement, mild aortic valve sclerosis without stenosis, left ventricle wall thickness is normal, mild MR and mild TR and mild TR 03/18: CAT scan of the abdomen and pelvis without contrast revealed cardiomegaly with small right pleural effusion this could relate to congestive heart failure. Mild ascites. Scrotal hydroceles. Piotr Ks edema. No free air. 20% compression deformity of T12 that is probably old. Patient has been seen by nephrology for chronic kidney disease stage IIIB/4. Lasix was increased to 80 mg twice daily. Iron studies were ordered. We have added in Ferrlecit for 2 doses, LAURA, acute hepatitis panel, protein electrophoresis, repeat ammonia level. Patient does state he had diarrheal last night after he drank the contrast for CAT scan. Patient has been seen by GI and AFP etc ordered. Lactulose ordered. 03/19: Repeat ammonia yesterday was 102 and this morning 43. INR 4.8. BUN 69 creatinine 2.2. Hemoglobin is stable at 9.1. Patient has had 2 bowel movements since starting lactulose. He is receiving his second dose of Ferrlecit today. Acute hepatitis panel was negative, LAURA negative, AFP tumor marker negative, angiotensin-converting enzyme are within normal limits. Carnitine, ceruloplasmin, smooth muscle antibody and protein electrophoresis are pending. patient has nasal congestion and still having slight nasal bleeding. Afrin added. Noted cardiology consult was added for cardiorenal syndrome. Midodrine added 10 mg 3 times daily, Pascual wraps to bilateral lower extremities for edema. 03/20: patient has been seen by cardiology for generalized anasarca probably related to chronic renal failureand congestive heart failure may be contributing to it. Dr. Babb is recommended holding Aldactone. Echocardiogram reveals EF of 20-25%, moderate concentric left ventricular hypertrophy, L a severely dilated at greater than 40, trace aortic regurgitation, mild tricuspid regurgitation, mild pulmonary hypertension, right ventricular systolic pressure is 41.23. Dr. Inman is recommended Lasix twice daily, Ferrlecit for 3 addition days. He has completed 3 doses already. Continue 1500 mL fluid restriction and low-salt diet, sodium bicarb. Dr. Kari Luna plans for folowup as an OP. Aldactone discontinued. 03/21: Ceruloplasmin within normal limits. Today INR is 3.4, BUN 68 and creatinine 2.03. Total bilirubin 1.7, alkaline phosphatase 155, ammonia level LXIII. Blood pressure has been 99/70. Patient has not had a bowel movement since Friday despite use of lactulose and Dulcolax suppository With Good Results Today. His Nasal Congestion Is Improved Today. He Denies Having Any Lightheadedness or Dizziness. Cardiology Is Now Signed off the Case. 03/22: patient is currently on Lasix 80 mg every 8 hours.BUN 67 and creatinine 1.88. INR 2.8. Patient denies any new complaints. He is ambulating in his room and sometimes in the hallway without difficulty. Repeat lab work for the morning. Anticipate possible discharge by Friday. Objective - Vital Signs Vital signs: Vital Signs Temp 96.3 F L 03/22/17 07:00 Pulse 63 03/22/17 07:00 Resp 16 03/22/17 07:00 BP 107/58 03/22/17 07:00 Pulse Ox 98 03/22/17 07:00 Intake & Output 03/21/17 03/22/17 03/22/17 18:59 06:59 18:59 Intake Total 592 Output Total 575 Balance 17 Weight 104.9 kg Intake: Oral 592 Output: Urine 575 Other: Voiding Method Urinal Urinal # Voids 1 2 # Bowel Movements 1 - Exam General appearance: cooperative, no acute distress, obese - EENT Eyes: anicteric sclerae, EOMI, PERRLA, dentition normal, normal appearance ENT: hearing grossly normal, normal oropharynx - Neck Neck: normal ROM - Respiratory Respiratory: bilateral: CTA, negative: diminished, dullness, rales, rhonchi - Cardiovascular Rhythm: regular Heart sounds: normal: S1, S2 Abnormal Heart Sounds: no systolic murmur, no diastolic murmur, no rub, no S3 Gallop, no S4 Gallop, no click, no other leg Peripheral Edema: bilateral: 4+ - Gastrointestinal General gastrointestinal: organomegaly, soft - Genitourinary Male genitourinary: scrotal edema - Integumentary Integumentary: normal, normal turgor - Neurologic Neurologic: CNII-XII intact - Musculoskeletal Musculoskeletal: gait normal, strength equal bilaterally - Psychiatric Psychiatric: A&O x's 3, appropriate affect, intact judgment & insight - Labs CBC & Chem 7: 03/22/17 07:49 03/22/17 07:49 Labs: Abnormal Lab Results - Last 24 Hours (Table) 03/18/17 03/22/17 03/22/17 Range/Units 13:31 07:49 07:49 RBC 3.27 L (4.30-5.90) m/uL Hgb 9.5 L (13.0-17.5) gm/dL Hct 30.2 L (39.0-53.0) % RDW 19.5 H (11.5-15.5) % Plt Count 122 L (150-450) k/uL PT 25.3 H (9.0-12.0) sec INR 2.8 H (<1.2) Sodium (137-145) mmol/L BUN (9-20) mg/dL Creatinine (0.66-1.25) mg/dL Total Bilirubin (0.2-1.3) mg/dL Alkaline Phosphatase (38-126) U/L Free Carnitine 66 H (25-60) umol/L Total Carnitine 102 H (34-86) umol/L Carnitine Esters 36 H (5-29) umol/L 03/22/17 Range/Units 07:49 RBC (4.30-5.90) m/uL Hgb (13.0-17.5) gm/dL Hct (39.0-53.0) % RDW (11.5-15.5) % Plt Count (150-450) k/uL PT (9.0-12.0) sec INR (<1.2) Sodium 136 L (137-145) mmol/L BUN 67 H (9-20) mg/dL Creatinine 1.88 H (0.66-1.25) mg/dL Total Bilirubin 2.0 H (0.2-1.3) mg/dL Alkaline Phosphatase 174 H (38-126) U/L Free Carnitine (25-60) umol/L Total Carnitine (34-86) umol/L Carnitine Esters (5-29) umol/L Assessment and Plan Plan: 1. Anasarca, presenting with difficulty of urinating secondary to chronic kidney disease. consults with nephrology, GI and cardiology appreciated. Continue Lasix 80 mg IV 3x daily, low-salt diet, 1500 mL fluid restriction, sodium bicarb, Pascual wraps to bilateral lower extremities. 2. Elevated ammonia level without any current evidence of hepatic encephalopathy, patient has mild hyperbilirubinemia, hepatitis panel to be obtained with Dr. Luna evaluate for autoimmune hepatitis, patient had diarrhea today, we'll going to monitor ammonia levels, lactulose to be started 3. History of Tachybrady syndrome and chronic ischemic cardiomyopathy with AICD placement in [address] Henriquez outpatient for pacemaker interrogation 4. Chronic atrial fibrillation on Coumadin, Coumadin on hold temporarily until etiology of anasarca is completed possible kidney biopsy and liver biopsy 5. Chronic cardiorenal syndrome with CKD stage III with significant azotemia since 2016, creatinine is between 2.7-3.25 in the year 2016, currently at 2.2, Dr. Castro will be consulted, echocardiogram to be obtained, consult cardiology 6. hypertension for which he is on metoprolol . no medication changes were made 7. hyperlipedemia on statin 8. chronic anticoagulation with coumadin with hypercoagulopathy. Coumadin is on hold 9. CAD history 10. Hypothyroidism, on levothyroxine 25 mg daily, TSH will be obtained 11. DVT prophylaxis on heparin subcu, patient will be transitioned over to Coumadin should there be no biopsy both from GI and nephrology services 12. Epistaxis Coumadin on hold, saline nasal spray, and low-dose Sudafed, Afrin nasal spray. 13. Constipation, resolved after Dulcolax suppository. Discharge plan: Home over the weekend/Friday Impression and plan of care have been directed as dictated by the signing physician. Tanika Romero nurse practitioner acting as scribe for signing physician.
[2017-03-22 13:19] VITALS: BMI 28.9
--- NOTE | 2017-03-22 14:17 | P.PN ---
Subjective Progress Note Date: 03/22/17 Patient seen and examined for the follow-up of acute kidney injury. Sitting at the edge of the bed eating lunch talking to the family over the phone. Feels better. Objective - Vital Signs Vital signs: Vital Signs Temp 96.3 F L 03/22/17 07:00 Pulse 63 03/22/17 07:00 Resp 16 03/22/17 07:00 BP 107/58 03/22/17 07:00 Pulse Ox 98 03/22/17 07:00 Intake & Output 03/21/17 03/22/17 03/22/17 18:59 06:59 18:59 Intake Total 592 Output Total 575 Balance 17 Weight 104.9 kg 104.9 kg Intake: Oral 592 Output: Urine 575 Other: Voiding Method Urinal Urinal # Voids 1 2 # Bowel Movements 1 - Exam No acute distress S1-S2 heard Lungs Clear to auscultation Edema - Labs CBC & Chem 7: 03/22/17 07:49 03/22/17 07:49 Labs: Abnormal Lab Results - Last 24 Hours (Table) 03/22/17 03/22/17 03/22/17 Range/Units 07:49 07:49 07:49 RBC 3.27 L (4.30-5.90) m/uL Hgb 9.5 L (13.0-17.5) gm/dL Hct 30.2 L (39.0-53.0) % RDW 19.5 H (11.5-15.5) % Plt Count 122 L (150-450) k/uL PT 25.3 H (9.0-12.0) sec INR 2.8 H (<1.2) Sodium 136 L (137-145) mmol/L BUN 67 H (9-20) mg/dL Creatinine 1.88 H (0.66-1.25) mg/dL Total Bilirubin 2.0 H (0.2-1.3) mg/dL Alkaline Phosphatase 174 H (38-126) U/L Assessment and Plan Assessment: Impression: #1 acute kidney injury secondary to cardiorenal syndrome #2 chronic kidney disease stage III to 4 with baseline creatinine 1.6-2.3 MG per DL. #3 systolic CHF with EF of 20-25% #4 Anemia multifactorial #5 hypervolemic hyponatremia Recommendations: #1 continue with Lasix 80 mg IV. Change the dose to twice daily #2 repeat labs in the morning, renal function improving #3 avoid nephrotoxic agents and hypotensive episode
[2017-03-22] MEDS: BISACODYL 10 MG SUPP RECTAL PRN (16:31)
[2017-03-23] MEDS: METOPROLOL TARTRATE 25 MG TAB PO SCH ×3 (01:05→20:37)
[2017-03-23] MEDS: LEVOTHYROXINE 25 MCG TAB PO SCH (06:16)
[2017-03-23 07:50] LABS: Anisocytosis Moderate; HCT 32.1 % (39.0-53.0); HGB 9.3 gm/dL (13.0-17.5); Hypochromasia Moderate; MCH 28.7 pg (25.0-35.0); MCHC 29.1 g/dL (31.0-37.0); Macrocytosis Moderate; Mean Platelet Volume 9.2; Platelet Count 119 k/uL (150-450); RBC 3.26 m/uL (4.30-5.90); RDW 20.5 % (11.5-15.5); WBC 4.1 k/uL (3.8-10.6)
[2017-03-23 07:56] LABS: MCV 98.6 fL (80.0-100.0)
[2017-03-23] MEDS: LACTULOSE 20 GM/30 ML CUP PO SCH ×3 (08:06→20:35)
[2017-03-23] MEDS: FUROSEMIDE 10 MG/ML 10 ML VIAL IV SCH ×2 (08:07→20:36)
[2017-03-23] MEDS: MIDODRINE 5 MG TAB PO SCH ×3 (08:07→17:19)
[2017-03-23 08:08] LABS: Albumin 3.3 g/dL (3.5-5.0); Calcium 9.7 mg/dL (8.4-10.2); Potassium 4.2 mmol/L (3.5-5.1); Total Bilirubin 1.9 mg/dL (0.2-1.3); Total Protein 6.1 g/dL (6.3-8.2)
[2017-03-23] MEDS: OXYMETAZOLINE 0.05% NASL SPRAY 1 SPRAY BOTTLE NASAL SCH ×3 (08:08→20:35)
[2017-03-23] MEDS: SODIUM CHLORIDE 0.65% NASAL SPRAY 44 ML BTL NASAL SCH ×2 (08:08→20:35)
[2017-03-23 08:09] LABS: INR 2.3 (<1.2); Prothrombin Time 20.5 sec (9.0-12.0)
[2017-03-23] MEDS ORDERED: LACTULOSE 20 GM/30 ML CUP PO ONE (09:35)
--- NOTE | 2017-03-23 10:42 | P.PN ---
Subjective Progress Note Date: 03/23/17 This is a 66 year old pleasant gentleman aptient of Dr Antonio Bardales. he has underlying history of aftrial fibrillation, hypertension and ventricular arrythmia for which and cardiac ablation on 10/[address] Henriquez, CVA, diabetes mellitus type 2 atrial fibrillation, DVT,. Presenting to the emergency room secondary to difficulty of urinating, acute onset, he also has swelling scrotum, swelling lower extremity and some swelling in the abdomen. Patient denies any chest pain or shortness of breath, patient's on Lasix 40 mg twice a day, as well as Coumadin for anticoagulation Weight gain started approximately since , when patient was noted to have some leg cramps, a friend advised him to drink more fluids, thereafter patient started drinking more of fluids 64 ounces minimum per day, patient started gaining the weight and had 35 pound weight gain since January. Patient denies any PND or shortness of breath he does have worsening leg swelling and abdominal ascites no chest pain patient denies jaundice He was subsequently seen in the emergency room, urinalysis was negative for pyuria or hematuria, specific gravity was 1.009, creatinine of 2.2, BUN of 63, alkaline phosphatase elevated at 181, ammonia elevated at 73, bilirubin elevated at 2.0 however AST ALT normal, alkaline phosphase elevated abdominal ultrasound shows gallbladder surgically absent, patient has fatty liver, and bile duct 0.7 cm, no hydronephrosis, bladder within normal limits, no bladder jets noted, as patient has pitting edema and abdomen with the examination the patient complains of epistaxis leg cramps and abdominal distention with ascites and difficulties urinating, post void residual was requested, bladder scan noted as above negative for any bladder distention or hydronephrosis. Consult was made Dr. Castro and Dr. Luna gastroenterology Previous workup in 2016 echocardiogram was reviewed, EF at that time was 20-25% , right ventricle enlargement, mild aortic valve sclerosis without stenosis, left ventricle wall thickness is normal, mild MR and mild TR and mild TR 03/18: CAT scan of the abdomen and pelvis without contrast revealed cardiomegaly with small right pleural effusion this could relate to congestive heart failure. Mild ascites. Scrotal hydroceles. Piotr Ks edema. No free air. 20% compression deformity of T12 that is probably old. Patient has been seen by nephrology for chronic kidney disease stage IIIB/4. Lasix was increased to 80 mg twice daily. Iron studies were ordered. We have added in Ferrlecit for 2 doses, LAURA, acute hepatitis panel, protein electrophoresis, repeat ammonia level. Patient does state he had diarrheal last night after he drank the contrast for CAT scan. Patient has been seen by GI and AFP etc ordered. Lactulose ordered. 03/19: Repeat ammonia yesterday was 102 and this morning 43. INR 4.8. BUN 69 creatinine 2.2. Hemoglobin is stable at 9.1. Patient has had 2 bowel movements since starting lactulose. He is receiving his second dose of Ferrlecit today. Acute hepatitis panel was negative, LAURA negative, AFP tumor marker negative, angiotensin-converting enzyme are within normal limits. Carnitine, ceruloplasmin, smooth muscle antibody and protein electrophoresis are pending. patient has nasal congestion and still having slight nasal bleeding. Afrin added. Noted cardiology consult was added for cardiorenal syndrome. Midodrine added 10 mg 3 times daily, Pascual wraps to bilateral lower extremities for edema. 03/20: patient has been seen by cardiology for generalized anasarca probably related to chronic renal failureand congestive heart failure may be contributing to it. Dr. Babb is recommended holding Aldactone. Echocardiogram reveals EF of 20-25%, moderate concentric left ventricular hypertrophy, L a severely dilated at greater than 40, trace aortic regurgitation, mild tricuspid regurgitation, mild pulmonary hypertension, right ventricular systolic pressure is 41.23. Dr. Inman is recommended Lasix twice daily, Ferrlecit for 3 addition days. He has completed 3 doses already. Continue 1500 mL fluid restriction and low-salt diet, sodium bicarb. Dr. Kari Luna plans for folowup as an OP. Aldactone discontinued. 03/21: Ceruloplasmin within normal limits. Today INR is 3.4, BUN 68 and creatinine 2.03. Total bilirubin 1.7, alkaline phosphatase 155, ammonia level LXIII. Blood pressure has been 99/70. Patient has not had a bowel movement since Friday despite use of lactulose and Dulcolax suppository With Good Results Today. His Nasal Congestion Is Improved Today. He Denies Having Any Lightheadedness or Dizziness. Cardiology Is Now Signed off the Case. 03/22: patient is currently on Lasix 80 mg every 8 hours.BUN 67 and creatinine 1.88. INR 2.8. Patient denies any new complaints. He is ambulating in his room and sometimes in the hallway without difficulty. Repeat lab work for the morning. Anticipate possible discharge by Friday. 03/23: hemoglobin 9.3, INR 2.3, BUN 63 and creatinine 1.71. ammonia level LXXIV, alkaline phosphatase 161, total bilirubin 1.9. Platelet count is 119. Patient had a bowel movement yesterday after a Dulcolax suppository. Patient will be given an extra dose of lactulose and started on Rifaximin as lactulose does not seem to be working for him. Repeat lab work in the morning. Objective - Vital Signs Vital signs: Vital Signs Temp 96.9 F L 03/23/17 07:59 Pulse 61 03/23/17 07:59 Resp 16 03/23/17 07:59 BP 95/58 03/23/17 07:59 Pulse Ox 97 03/23/17 07:59 Intake & Output 03/22/17 03/23/17 03/23/17 18:59 06:59 18:59 Intake Total 320 Output Total 1000 1425 Balance -1000 -1105 Weight 104.9 kg 103.7 kg Intake: IV 20 Invasive Line 3 20 Oral 300 Output: Urine 1000 1425 Other: Voiding Method Urinal - Exam General appearance: cooperative, no acute distress, obese - EENT Eyes: anicteric sclerae, EOMI, PERRLA, dentition normal, normal appearance ENT: hearing grossly normal, normal oropharynx - Neck Neck: normal ROM - Respiratory Respiratory: bilateral: CTA, negative: diminished, dullness, rales, rhonchi - Cardiovascular Rhythm: regular Heart sounds: normal: S1, S2 Abnormal Heart Sounds: no systolic murmur, no diastolic murmur, no rub, no S3 Gallop, no S4 Gallop, no click, no other leg Peripheral Edema: bilateral: 4+ - Gastrointestinal General gastrointestinal: organomegaly, soft - Genitourinary Male genitourinary: scrotal edema - Integumentary Integumentary: normal, normal turgor - Neurologic Neurologic: CNII-XII intact - Musculoskeletal Musculoskeletal: gait normal, strength equal bilaterally - Psychiatric Psychiatric: A&O x's 3, appropriate affect, intact judgment & insight - Labs CBC & Chem 7: 03/23/17 07:37 03/23/17 07:37 Labs: Abnormal Lab Results - Last 24 Hours (Table) 03/23/17 03/23/17 03/23/17 Range/Units 07:37 07:37 07:37 RBC 3.26 L (4.30-5.90) m/uL Hgb 9.3 L (13.0-17.5) gm/dL Hct 32.1 L (39.0-53.0) % MCHC 29.1 L (31.0-37.0) g/dL RDW 20.5 H (11.5-15.5) % Plt Count 119 L (150-450) k/uL PT 20.5 H (9.0-12.0) sec INR 2.3 H (<1.2) Sodium 135 L (137-145) mmol/L BUN 63 H (9-20) mg/dL Creatinine 1.71 H (0.66-1.25) mg/dL Glucose 113 H (74-99) mg/dL Total Bilirubin 1.9 H (0.2-1.3) mg/dL Alkaline Phosphatase 161 H (38-126) U/L Ammonia (<30) umol/L Total Protein 6.1 L (6.3-8.2) g/dL Albumin 3.3 L (3.5-5.0) g/dL 03/23/17 Range/Units 07:37 RBC (4.30-5.90) m/uL Hgb (13.0-17.5) gm/dL Hct (39.0-53.0) % MCHC (31.0-37.0) g/dL RDW (11.5-15.5) % Plt Count (150-450) k/uL PT (9.0-12.0) sec INR (<1.2) Sodium (137-145) mmol/L BUN (9-20) mg/dL Creatinine (0.66-1.25) mg/dL Glucose (74-99) mg/dL Total Bilirubin (0.2-1.3) mg/dL Alkaline Phosphatase (38-126) U/L Ammonia 74 H (<30) umol/L Total Protein (6.3-8.2) g/dL Albumin (3.5-5.0) g/dL Assessment and Plan Plan: 1. Anasarca, presenting with difficulty of urinating secondary to chronic kidney disease. consults with nephrology, GI and cardiology appreciated. Continue Lasix 80 mg IV 3x daily, low-salt diet, 1500 mL fluid restriction, sodium bicarb, Pascual wraps to bilateral lower extremities. 2. Elevated ammonia level without any current evidence of hepatic encephalopathy, patient has mild hyperbilirubinemia, hepatitis panel to be obtained with Dr. Luna evaluate for autoimmune hepatitis, patient had diarrhea today, we'll going to monitor ammonia levels, lactulose to be started 3. History of Tachybrady syndrome and chronic ischemic cardiomyopathy with AICD [place] [address] Henriquez outpatient for pacemaker interrogation 4. Chronic atrial fibrillation on Coumadin, Coumadin on hold temporarily until etiology of anasarca is completed possible kidney biopsy and liver biopsy 5. Chronic cardiorenal syndrome with CKD stage III with significant azotemia since 2016, creatinine is between 2.7-3.25 in the year 2016, currently at 2.2, Dr. Castro will be consulted, echocardiogram to be obtained, consult cardiology 6. hypertension for which he is on metoprolol . no medication changes were made 7. hyperlipedemia on statin 8. chronic anticoagulation with coumadin with hypercoagulopathy. Coumadin is on hold 9. CAD history 10. Hypothyroidism, on levothyroxine 25 mg daily, TSH will be obtained 11. DVT prophylaxis on heparin subcu, patient will be transitioned over to Coumadin should there be no biopsy both from GI and nephrology services 12. Epistaxis Coumadin on hold, saline nasal spray, and low-dose Sudafed, Afrin nasal spray. 13. Constipation, resolved after Dulcolax suppository. Discharge plan: Home over the weekend/Friday Impression and plan of care have been directed as dictated by the signing physician. Tanika Romero nurse practitioner acting as scribe for signing physician.
[2017-03-23] MEDS: RIFAXIMIN 550 MG TABLET PO SCH ×2 (11:56→20:37)
--- NOTE | 2017-03-23 11:57 | P.PN ---
Subjective Progress Note Date: 03/23/17 Patient seen and examined for the follow-up of acute kidney injury. Feels better. Admits making good amount of urine Objective - Vital Signs Vital signs: Vital Signs Temp 96.9 F L 03/23/17 07:59 Pulse 61 03/23/17 07:59 Resp 16 03/23/17 07:59 BP 95/58 03/23/17 07:59 Pulse Ox 97 03/23/17 07:59 Intake & Output 03/22/17 03/23/17 03/23/17 18:59 06:59 18:59 Intake Total 320 Output Total 1000 1425 Balance -1000 -1105 Weight 104.9 kg 103.7 kg Intake: IV 20 Invasive Line 3 20 Oral 300 Output: Urine 1000 1425 Other: Voiding Method Urinal - Exam No acute distress S1-S2 heard Lungs Clear to auscultation Edema - Labs CBC & Chem 7: 03/23/17 07:37 03/23/17 07:37 Labs: Abnormal Lab Results - Last 24 Hours (Table) 03/23/17 03/23/17 03/23/17 Range/Units 07:37 07:37 07:37 RBC 3.26 L (4.30-5.90) m/uL Hgb 9.3 L (13.0-17.5) gm/dL Hct 32.1 L (39.0-53.0) % MCHC 29.1 L (31.0-37.0) g/dL RDW 20.5 H (11.5-15.5) % Plt Count 119 L (150-450) k/uL PT 20.5 H (9.0-12.0) sec INR 2.3 H (<1.2) Sodium 135 L (137-145) mmol/L BUN 63 H (9-20) mg/dL Creatinine 1.71 H (0.66-1.25) mg/dL Glucose 113 H (74-99) mg/dL Total Bilirubin 1.9 H (0.2-1.3) mg/dL Alkaline Phosphatase 161 H (38-126) U/L Ammonia (<30) umol/L Total Protein 6.1 L (6.3-8.2) g/dL Albumin 3.3 L (3.5-5.0) g/dL 03/23/17 Range/Units 07:37 RBC (4.30-5.90) m/uL Hgb (13.0-17.5) gm/dL Hct (39.0-53.0) % MCHC (31.0-37.0) g/dL RDW (11.5-15.5) % Plt Count (150-450) k/uL PT (9.0-12.0) sec INR (<1.2) Sodium (137-145) mmol/L BUN (9-20) mg/dL Creatinine (0.66-1.25) mg/dL Glucose (74-99) mg/dL Total Bilirubin (0.2-1.3) mg/dL Alkaline Phosphatase (38-126) U/L Ammonia 74 H (<30) umol/L Total Protein (6.3-8.2) g/dL Albumin (3.5-5.0) g/dL Assessment and Plan Assessment: Impression: #1 acute kidney injury secondary to cardiorenal syndrome #2 chronic kidney disease stage III to 4 with baseline creatinine 1.6-2.3 MG per DL. #3 systolic CHF with EF of 20-25% #4 Anemia multifactorial #5 hypervolemic hyponatremia Recommendations: #1 continue with Lasix 80 mg IV twice daily #2 renal function stable #3 avoid nephrotoxic agents and hypotensive episode
[2017-03-24] MEDS: LEVOTHYROXINE 25 MCG TAB PO SCH (06:23)
[2017-03-24 07:36] LABS: Anisocytosis Slight; HCT 31.1 % (39.0-53.0); HGB 9.4 gm/dL (13.0-17.5); Hypochromasia Moderate; MCH 28.7 pg (25.0-35.0); MCHC 30.2 g/dL (31.0-37.0); MCV 94.7 fL (80.0-100.0); Macrocytosis Slight; Mean Platelet Volume 9.1; Platelet Count 121 k/uL (150-450); RBC 3.29 m/uL (4.30-5.90); RDW 19.3 % (11.5-15.5); WBC 4.1 k/uL (3.8-10.6)
[2017-03-24 07:50] LABS: Albumin 3.3 g/dL (3.5-5.0); Calcium 9.7 mg/dL (8.4-10.2); Potassium 4.4 mmol/L (3.5-5.1); Total Bilirubin 2.1 mg/dL (0.2-1.3); Total Protein 6.1 g/dL (6.3-8.2)
[2017-03-24 07:52] LABS: Prothrombin Time 18.2 sec (9.0-12.0)
[2017-03-24] MEDS: FUROSEMIDE 10 MG/ML 10 ML VIAL IV SCH (08:27)
[2017-03-24] MEDS: SODIUM CHLORIDE 0.65% NASAL SPRAY 44 ML BTL NASAL SCH (08:27)
[2017-03-24] MEDS: LACTULOSE 20 GM/30 ML CUP PO SCH ×2 (08:27→15:43)
[2017-03-24] MEDS: MIDODRINE 5 MG TAB PO SCH ×3 (08:27→16:57)
[2017-03-24] MEDS: METOPROLOL TARTRATE 25 MG TAB PO SCH (08:28)
[2017-03-24] MEDS: RIFAXIMIN 550 MG TABLET PO SCH (08:28)
[2017-03-24] MEDS: OXYMETAZOLINE 0.05% NASL SPRAY 1 SPRAY BOTTLE NASAL SCH ×2 (08:28→15:43)
[2017-03-24] MEDS: BISACODYL 10 MG SUPP RECTAL PRN (12:37)
[2017-03-24] MEDS ORDERED: LACTULOSE 20 GM/30 ML CUP PO ONE (12:54)
[2017-03-24 15:03] VITALS: BP 113/64; PULSE 64; RESP 18; TEMP 97
--- NOTE | 2017-03-24 15:26 | PN ---
PROGRESS NOTE DATE OF DICTATION: March 24, 2017. The patient is a 66-year-old pleasant white male with history of non-ischemic cardiomyopathy with right-sided heart failure, history of diabetes mellitus and hypertension/atrial fibrillation, admitted to the hospital with progressive weight gain and imaging study showed evidence of mild ascites, anasarca. While in the hospital, was noted to have elevated ammonia level, though he did not have any significant altered mental status. The patient has been started on lactulose and yesterday because of the ammonia level went up high he was also started on Xifaxan by Dr. Brasher. The patient denies any symptoms today. He did not have any bowel movements. He had 3 bowel movements yesterday but none today so far. He has been on lactulose 30 mL 3 times daily. No new symptoms. PHYSICAL EXAMINATION: He appears comfortable. No apparent distress. VITAL SIGNS: Stable. Blood pressure is 106/86, pulse is 71, temperature 96.8. HEENT Examination unremarkable. Conjunctivae pink, sclerae unremarkable. Chest clear on auscultation. HEART: Regular rate and rhythm. ABDOMEN: Soft and distended, but there was no free fluid noted. Extremities 2+ pedal edema. Skin no rashes. NEUROLOGIC: Alert and oriented x3. No focal deficits. LABS: WBC 4.1, hemoglobin 9.4, platelets 121. PT/INR 2, BUN 60, creatinine 1.71, alkaline phosphatase 169, AST 65, ALT 49, T bilirubin is 2.1, and albumin is 2.3. All workup for chronic liver disease has been negative. 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 He is noted to have very minimal elevation of AST as well at the bilirubin which makes it likely that we are dealing with an underlying liver disease at the present time. All workup for chronic liver disease so far has been negative. He has been treated with oral lactulose for hyperammonemia and yesterday was started on Xifaxan by Dr. Brasher, the ammonia today is much better. RECOMMENDATIONS: Increase the dose of lactulose so that he has had about 3 bowel movements daily and I discussed with the nursing staff to give him 30 cc every 4 hours and hold after having 3 bowel movements. The Xifaxan can be discontinued on an outpatient basis. He was advised to follow up in office 2 weeks following discharge from the hospital so that the medications can be adjusted more on outpatient basis. Thank you for this consultation. SERGO / DON: [id number] /
--- NOTE | 2017-03-24 15:41 | P.DS ---
Providers Date of admission: 03/17/17 14:34 Expected date of discharge: 03/24/17 Attending physician: Lisbet Landers Consults: 03/17/17 14:34 Consult Physician Urgent Consulting Provider: Manav Gallegos Consult Reason/Comments: hyperammonemia Do you want consulting provider notified?: Yes Consult Physician Urgent Consulting Provider: Amee Castor Consult Reason/Comments: arf Do you want consulting provider notified?: Yes 03/18/17 15:14 Consult Physician Routine Consulting Provider: Rinku Parmar Consult Reason/Comments: cardiorenal syndrome Do you want consulting provider notified?: Yes Primary care physician: [facility] Hospital Course: This is a 66 year old pleasant gentleman aptient of Dr Antonio Bardales. he has underlying history of aftrial fibrillation, hypertension and ventricular arrythmia for which and cardiac ablation on 10/[address] Henriquez, CVA, diabetes mellitus type 2 atrial fibrillation, DVT,. Presenting to the emergency room secondary to difficulty of urinating, acute onset, he also has swelling scrotum, swelling lower extremity and some swelling in the abdomen. Patient denies any chest pain or shortness of breath, patient's on Lasix 40 mg twice a day, as well as Coumadin for anticoagulation Weight gain started approximately since , when patient was noted to have some leg cramps, a friend advised him to drink more fluids, thereafter patient started drinking more of fluids 64 ounces minimum per day, patient started gaining the weight and had 35 pound weight gain since January. Patient denies any PND or shortness of breath he does have worsening leg swelling and abdominal ascites no chest pain patient denies jaundice He was subsequently seen in the emergency room, urinalysis was negative for pyuria or hematuria, specific gravity was 1.009, creatinine of 2.2, BUN of 63, alkaline phosphatase elevated at 181, ammonia elevated at 73, bilirubin elevated at 2.0 however AST ALT normal, alkaline phosphase elevated abdominal ultrasound shows gallbladder surgically absent, patient has fatty liver, and bile duct 0.7 cm, no hydronephrosis, bladder within normal limits, no bladder jets noted, as patient has pitting edema and abdomen with the examination the patient complains of epistaxis leg cramps and abdominal distention with ascites and difficulties urinating, post void residual was requested, bladder scan noted as above negative for any bladder distention or hydronephrosis. Consult was made Dr. Castro and Dr. Luna gastroenterology Previous workup in 2016 echocardiogram was reviewed, EF at that time was 20-25% , right ventricle enlargement, mild aortic valve sclerosis without stenosis, left ventricle wall thickness is normal, mild MR and mild TR and mild TR 03/18: CAT scan of the abdomen and pelvis without contrast revealed cardiomegaly with small right pleural effusion this could relate to congestive heart failure. Mild ascites. Scrotal hydroceles. Piotr Ks edema. No free air. 20% compression deformity of T12 that is probably old. Patient has been seen by nephrology for chronic kidney disease stage IIIB/4. Lasix was increased to 80 mg twice daily. Iron studies were ordered. We have added in Ferrlecit for 2 doses, LAURA, acute hepatitis panel, protein electrophoresis, repeat ammonia level. Patient does state he had diarrheal last night after he drank the contrast for CAT scan. Patient has been seen by GI and AFP etc ordered. Lactulose ordered. 03/19: Repeat ammonia yesterday was 102 and this morning 43. INR 4.8. BUN 69 creatinine 2.2. Hemoglobin is stable at 9.1. Patient has had 2 bowel movements since starting lactulose. He is receiving his second dose of Ferrlecit today. Acute hepatitis panel was negative, LAURA negative, AFP tumor marker negative, angiotensin-converting enzyme are within normal limits. Carnitine, ceruloplasmin, smooth muscle antibody and protein electrophoresis are pending. patient has nasal congestion and still having slight nasal bleeding. Afrin added. Noted cardiology consult was added for cardiorenal syndrome. Midodrine added 10 mg 3 times daily, Pascual wraps to bilateral lower extremities for edema. 03/20: patient has been seen by cardiology for generalized anasarca probably related to chronic renal failureand congestive heart failure may be contributing to it. Dr. Babb is recommended holding Aldactone. Echocardiogram reveals EF of 20-25%, moderate concentric left ventricular hypertrophy, L a severely dilated at greater than 40, trace aortic regurgitation, mild tricuspid regurgitation, mild pulmonary hypertension, right ventricular systolic pressure is 41.23. Dr. Inman is recommended Lasix twice daily, Ferrlecit for 3 addition days. He has completed 3 doses already. Continue 1500 mL fluid restriction and low-salt diet, sodium bicarb. Dr. Kari Luna plans for folowup as an OP. Aldactone discontinued. 03/21: Ceruloplasmin within normal limits. Today INR is 3.4, BUN 68 and creatinine 2.03. Total bilirubin 1.7, alkaline phosphatase 155, ammonia level LXIII. Blood pressure has been 99/70. Patient has not had a bowel movement since Friday despite use of lactulose and Dulcolax suppository With Good Results Today. His Nasal Congestion Is Improved Today. He Denies Having Any Lightheadedness or Dizziness. Cardiology Is Now Signed off the Case. 03/22: patient is currently on Lasix 80 mg every 8 hours.BUN 67 and creatinine 1.88. INR 2.8. Patient denies any new complaints. He is ambulating in his room and sometimes in the hallway without difficulty. Repeat lab work for the morning. Anticipate possible discharge by Friday. 03/23: hemoglobin 9.3, INR 2.3, BUN 63 and creatinine 1.71. ammonia level LXXIV, alkaline phosphatase 161, total bilirubin 1.9. Platelet count is 119. Patient had a bowel movement yesterday after a Dulcolax suppository. Patient will be given an extra dose of lactulose and started on Rifaximin as lactulose does not seem to be working for him. Repeat lab work in the morning. 03/24: Patient has been cleared for discharge by nephrology and GI. Patient will continue on lactulose and we'll also add and Dulcolax as this seems to work better for his stools. Nephrology is recommended Lasix 80 mg twice daily until patient is seen by Dr. Castro in the office. Patient will be discharged home today in stable condition. Because INRs have been elevated secondary to liver disease, Coumadin will be discontinued until patient is followed up by his primary care physician. Discharge diagnoses: 1. Anasarca secondary to chronic kidney disease and most likely underlying liver disease with acute on chronic systolic heart failure. 2. Elevated ammonia level without hepatic encephalopathy secondary to underlying liver disease 3. History of Tachybrady syndrome and chronic ischemic cardiomyopathy with AICD placement in 2013 4. Chronic atrial fibrillation 5. Chronic cardiorenal syndrome with CKD stage III 6. hypertension 7. hyperlipedemia 8. hypercoagulopathy secondary to Coumadin and liver disease 9. CAD history 10. Hypothyroidism, 11. Epistaxis 12. Constipation Discharge plan: Home Impression and plan of care have been directed as dictated by the signing physician. Tanika Romero nurse practitioner acting as scribe for signing physician. Patient Condition at Discharge: Good Plan - Discharge Summary Discharge Rx Participant: No New Discharge Prescriptions: New Bisacodyl [Dulcolax] 5 mg PO DAILY tablet. Bisacodyl [Dulcolax] 10 mg RECTAL DAILY PRN supp PRN Reason: Constipation Lactulose [Cephulac] 20 gm PO TID #90 dose Midodrine [ProAmatine] 10 mg PO AC-TID #90 tab Oxymetazoline 0.05% Nasl [place] [Afrin 0.05% Nasal [place]] 2 spray NASAL TID bottle Pseudoephedrine [Sudafed] 30 mg PO Q8H PRN tab PRN Reason: Nasal Congestion rOPINIRole HCL [Requip] 0.5 mg PO BID #60 tab Sodium Chloride 0.65% Nasal [Deep [place] (Saline)] 2 spray NASAL BID spray Continue Levothyroxine Sodium [Synthroid] 25 mcg PO DAILY Metoprolol Tartrate [Lopressor] 25 mg PO BID #60 tab Changed Furosemide [Lasix] 80 mg PO BID #120 tab Discontinued Spironolactone [Aldactone] 25 mg PO DAILY Warfarin [Coumadin] 5 mg PO MOWEFRSA Warfarin [Coumadin] 2.5 mg PO [facility] Discharge Medication List Levothyroxine Sodium [Synthroid] 25 mcg PO DAILY 11/10/13 [History] Metoprolol Tartrate [Lopressor] 25 mg PO BID #60 tab 07/07/15 [Rx] Bisacodyl [Dulcolax] 5 mg PO DAILY tablet. 03/24/17 [Rx] Bisacodyl [Dulcolax] 10 mg RECTAL DAILY PRN supp 03/24/17 [Rx] Furosemide [Lasix] 80 mg PO BID #120 tab 03/24/17 [Rx] Lactulose [Cephulac] 20 gm PO TID #90 dose 03/24/17 [Rx] Midodrine [ProAmatine] 10 mg PO AC-TID #90 tab 03/24/17 [Rx] Oxymetazoline 0.05% Nasl [place] [Afrin 0.05% Nasal [place]] 2 spray NASAL TID bottle 03/24/17 [Rx] Pseudoephedrine [Sudafed] 30 mg PO Q8H PRN tab 03/24/17 [Rx] Sodium Chloride 0.65% Nasal [Deep Sea (Saline)] 2 spray NASAL BID spray [Rx] rOPINIRole HCL [Requip] 0.5 mg PO BID #60 tab 03/24/17 [Rx] Follow up Appointment(s)/Referral(s): Amee Castro MD [STAFF PHYSICIAN] - 04/02/17 11:20 am Danna Luna MD [STAFF PHYSICIAN] - 04/02/17 3:00 pm Alexander Marrero MD [Primary Care Provider] - 03/31/17 10:30 am Patient Instructions/Handouts: Heart Failure (DC), Acute Kidney Injury (DC), Chronic Kidney Disease (DC) Discharge Disposition: HOME SELF-CARE
--- NOTE | 2017-03-25 05:29 | PN ---
PROGRESS NOTE Patient is seen for followup for acute kidney injury mainly cardiorenal. Currently maintained on IV Lasix. Patient is actually being discharged today. He continues to have significant edema, although improved than on his initial admission. PHYSICAL EXAMINATION: On examination, blood pressure is 113/64, heart rate 64 per minute. He is afebrile. EXAMINATION OF THE HEART: S1, S2. EXAMINATION OF THE LUNGS: Bilateral breath sounds are heard. ABDOMEN: Soft, nontender, obese. Examination of the lower extremities shows edema 3+ bilaterally. Chronic skin changes. [employer] exam is grossly intact. LAB: Labs show sodium 138, potassium 4.4, BUN 60, serum creatinine 1.7. Hemoglobin 9.4 g/dL. ASSESSMENT: 1. Acute kidney injury, cardiorenal, currently slightly improved. 2. Creatinine staying stable at 1.7 mg/dL. 3. Severe cardiomyopathy. 4. Congestive heart failure, acute on top of chronic. Remains on IV Lasix. 5. Chronic lower extremity edema. PLAN: Maintain Lasix 80 mg p.o. b.i.d. upon discharge and follow up as outpatient in about 1 to 2 weeks. Continue with the midodrine. MMODL / IJN: [id number] /
== END 2017-03-24 19:30 | disposition home or self-care (01) | DRG 291 ==
LOC: EC 09:49 → 6SEL 14:34 → 4MS4W 03-21 10:16
PROVIDERS: ADMIT Family Medicine; ATTEND Family Medicine
DX: I13.0 Hypertensive heart and chronic kidney disease with heart failure and stage 1 through stage 4 chronic kidney disease, or unspecified chronic kidney disease (principal); I50.23 Acute on chronic systolic (congestive) heart failure; N17.9 Acute kidney failure, unspecified; E87.2 Acidosis; E72.20 Disorder of urea cycle metabolism, unspecified; R18.8 Other ascites; I27.20 Pulmonary hypertension, unspecified; N18.4 Chronic kidney disease, stage 4 (severe); E87.1 Hypo-osmolality and hyponatremia; E11.22 Type 2 diabetes mellitus with diabetic chronic kidney disease; I49.5 Sick sinus syndrome; K76.1 Chronic passive congestion of liver; D63.1 Anemia in chronic kidney disease; E03.9 Hypothyroidism, unspecified; E61.1 Iron deficiency; E78.5 Hyperlipidemia, unspecified; I25.10 Atherosclerotic heart disease of native coronary artery without angina pectoris; I25.5 Ischemic cardiomyopathy; R09.81 Nasal congestion; I48.0 Paroxysmal atrial fibrillation; I48.2 Chronic atrial fibrillation; K59.00 Constipation, unspecified; K76.0 Fatty (change of) liver, not elsewhere classified; K76.89 Other specified diseases of liver; N43.3 Hydrocele, unspecified; R04.0 Epistaxis; R19.7 Diarrhea, unspecified; I08.3 Combined rheumatic disorders of mitral, aortic and tricuspid valves; R79.1 Abnormal coagulation profile; Z79.01 Long term (current) use of anticoagulants; Z79.899 Other long term (current) drug therapy; Z86.718 Personal history of other venous thrombosis and embolism; Z86.73 Personal history of transient ischemic attack (TIA), and cerebral infarction without residual deficits; Z95.810 Presence of automatic (implantable) cardiac defibrillator; Z90.49 Acquired absence of other specified parts of digestive tract; Z82.49 Family history of ischemic heart disease and other diseases of the circulatory system
CPT/HCPCS: 36415; 71046; 74176; 76705; 76770; 80048; 80053; 80074; 80320; 81003; 82105; 82140; 82164; 82379; 82390; 82550; 82553; 82728; 83516; 83540; 83550; 83605; 83690; 83735; 84100; 84165; 84443; 84484; 85025; 85027; 85610; 85730; 86038; 87086; 87502; 90732; 93306; 96374; 99285

== ENCOUNTER → 2017-04-11 | Outpatient (CLI) | payer MEDICARE, BC ==
--- NOTE | 2017-04-11 12:01 | US ---
EXAMINATION TYPE: US kidneys/renal and bladder DATE OF EXAM: 04/11/2017 COMPARISON: US and CT CLINICAL HISTORY: R33.9 Urinary rentention. Urinary retention EXAM MEASUREMENTS: Right Kidney: 9.9 x 4.5 x 4.5 cm Left Kidney: 9.4 x 4.9 x 4.8 cm Post Void Residual Volume: 24 mL Right Kidney: No evidence of hydro, lower pole gassed out Left Kidney: No evidence of hydro, lower pole gassed out Bladder: Appeared wnl Bilateral Jets seen: No Normal Post Void Residual: Yes. Volume of 24 cc. Small amount of ascites in the hepatorenal fossa Prominent size of the spleen as it measures 13.2 cm in longitudinal dimension There is no evidence for hydronephrosis at this point in time. No nephrolithiasis is seen. No sam s are identified. The urinary bladder is anechoic. Bilateral ureteral jets are seen. IMPRESSION: 1. No abnormal post void residual in this patient with urinary retention. 2. Partial obscuration of the lower poles of the kidneys although no gross evidence of nephrolithiasi s, hydronephrosis or renal masses seen. 3. Incidentally identified scant ascites within the hepatorenal fossa. 4. Prominent size of the spleen measuring 13.2 cm.
== END | disposition home or self-care (01) ==
LOC: RADUSWWP 10:49
PROVIDERS: ATTEND Nurse Practitioner Family
DX: R33.9 Retention of urine, unspecified (principal); R18.8 Other ascites
CPT/HCPCS: 76770